=== PATIENT | female | born 2000 | race Hispanic/Latino ===

== ENCOUNTER 2022-07-10 17:44 | Emergency (ER) | payer OTHER ==
--- OUTSIDE RECORDS SUMMARY | 2022-07-10 17:49 | XMS REPORT | Continuity of Care Document ---
:2000 Author Organization [facility] t Address [address] Sellers [address] [place] [id number] Care Team Providers Name Role Phone Shona Bryant Primary Care Physician [phone] SHONA ARAUZ Attending Clinician Unavailable Margot Ramos CNM Attending Clinician MARGOT RAMOS Attending Clinician Unavailable Provider, TeresaRmchtj Temp Attending Clinician Unavailable Shona Bryant Attending Clinician [phone] Shazia Ellison PA-C Attending Clinician SHAZIA ELLISON Attending Clinician Unavailable Doctor Unassigned, Valera Attending Clinician Unavailable MELISSA POTTER Attending Clinician Unavailable Payers Payer Name Policy Type Policy Number Effective Date Expiration Date Dudley araya MD [employer] [id number] 2022 00:00:00 Problems Condition Condition Condition Status Onset Resolution Last Treating Co mments Source Name Details Category Date Date Treatment Clinician Date Encounter Encounter Disease Active 2021-08 Uni vers for for 08-23 ity of Depo-Prove Depo-Prove 00:00: [place] 00 Medical contracept contracept Br anch ion ion Overweight Overweight Disease Active 2021-08 U nivers (BMI (BMI 1-05 ity of 25.0-29.9) 25.0-29.9) 00:00: [place] [facility] History of History of Disease Active 2021-08 U paters chlamydia chlamydia 05 [place] Allergies, Adverse Reactions, Alerts Allergy Allergy Status Severity Reaction(s) Onset Inactive Treating Comm ents Source Name Type Date Date Clinician NO KNOWN Drug Active Univers ALLERGIE Class ity of S [facility] Social History Social Habit Start Date Stop Date Quantity Comments Source History SDOH University o f Alcohol Std [place] [facility] Drinks [facility] History SDOH University o f Alcohol Binge [place] [facility] Alcohol intake 2022-07-08 2022-07-08 Current drinker Unive rsity of 00:00:00 00:00:00 of alcohol [facility] (finding) Branch Exposure to 2022-06-24 2022-07-04 Not sure [facility]-CoV-2 00:00:00 13:05:00 [facility] (event) [place] Tobacco use and 2022-06-23 2022-06-23 Smokeless tobacco Un iversity of exposure 00:00:00 00:00:00 non-user [facility] Alcohol Comment 2022-06-23 2022-06-23 Socially Universit y of 00:00:00 00:00:00 [facility] History SDOH 2019-09-02 2019-09-02 1 University o f Alcohol Frequency 00:00:00 00:00:00 [facility] edical [place] Sex Assigned At 2000 2001 Universit y of 00:00:00 00:00:00 [facility] Smoking Status Start Date Stop Date Source Never smoked tobacco [facility] Medications Ordered Filled Start Stop Current Ordering Indication Dosage Frequency Signature Comments Components Source Medication Medication Date Date Medication? Clinician (SIG) Name Name metroNIDAZO 2021-08- Yes [id number] 500mg Take 1 Univers LE 500 mg 17 11-25 tablet by ity of tablet 00:00: 05:59 mouth in [place] 00 :00 the Medical morning Branch and 1 tablet in the evening. Do all this for 7 days. medroxyPROG 2021-08 Yes [id number] 150mg Univers ESTERone 1-05 ity of (DEPO-PROVE 14:45: [place] RA) syringe 00 Medical 150 mg Branch medroxyPROG 2021-08 Yes [id number] 150mg 150 mg, Univers ESTERone 1-05 Intramuscu ity o f (DEPO-PROVE 14:45: lar, [place] RA) syringe 00 [id number], Med ical 150 mg First dose Branch on 06/23/22 at 0945, Until Discontinu ed, Routine medroxyPROG 2021-08 Yes [id number] 150mg Univers ESTERone 1-05 ity of (DEPO-PROVE 14:45: [place] RA) syringe 00 Medical 150 mg Branch medroxyPROG 2021-08 Yes [id number] 150mg 150 mg, Univers ESTERone 1-05 Intramuscu ity o f (DEPO-PROVE 14:45: lar, [place] RA) syringe 00 [id number], Med ical 150 mg First dose Branch on 06/23/22 at 0945, Until Discontinu ed, Routine medroxyPROG 2021-08 Yes [id number] 150mg Univers ESTERone 1-05 ity of (DEPO-PROVE 14:45: [place] RA) syringe 00 Medical 150 mg Branch medroxyPROG 2021-08 Yes [id number] 150mg Univers ESTERone 1-05 ity of (DEPO-PROVE 14:45: [place] RA) syringe 00 Medical 150 mg Branch medroxyPROG 2021-08 Yes [id number] 150mg Univers ESTERone 1-05 ity of (DEPO-PROVE 14:45: [place] RA) syringe 00 Medical 150 mg Branch medroxyPROG 2021-08 Yes [id number] 150mg Univers ESTERone 1-05 ity of (DEPO-PROVE 14:45: [place] RA) syringe 00 Medical 150 mg Branch medroxyPROG 2021-08 Yes [id number] 150mg Univers ESTERone 1-05 ity of (DEPO-PROVE 14:45: [place] RA) syringe 00 Medical 150 mg Branch medroxyPROG 2021-08 Yes [id number] 150mg Univers ESTERone 1-05 ity of (DEPO-PROVE 14:45: [place] RA) syringe 00 Medical 150 mg Branch medroxyPROG 2021-08- No [id number] 150mg Univers ESTERone 1-05 11-05 ity of (DEPO-PROVE 14:30: 14:20 [place] RA) 00 :37 Medical injection Branch 150 mg medroxyPROG 2021-08- No [id number] 150mg Univers ESTERone 1-05 11-05 ity of (DEPO-PROVE 14:30: 14:20 [place] RA) 00 :37 Medical injection Branch 150 mg metroNIDAZO 2021- No [id number] 500mg Take 1 Univers LE 500 mg 09-04 tablet by ity of tablet 00:00: 00:00 mouth 2 [place] 00 :00 (two) Medical times [place] daily. metroNIDAZO 2021- No [id number] 500mg Take 1 Univers LE 500 mg 09-04 tablet by ity of tablet 00:00: 00:00 mouth 2 [place] 00 :00 (two) Medical times [place] daily. Immunizations Ordered Immunization Filled Immunization Date Status Commen ts Source Name Name Influenza Virus 2020-08-09 Completed Universit y of Vaccine [place] .5 mL 00:00:00 [place] [facility] IM 6+ MO Branch Influenza Virus 2020-08-09 Completed Universit y of Vaccine [place] .5 mL 00:00:00 [place] [facility] 6+ MO Branch Influenza Virus 2020-08-09 Completed Universit y of Vaccine [place] .5 mL 00:00:00 [place] [facility] 6+ MO Branch Influenza Virus 2020-08-09 Completed Universit y of Vaccine [place] .5 mL 00:00:00 [place] [facility] 6+ MO Branch Influenza Virus 2020-08-09 Completed Universit y of Vaccine [place] .5 mL 00:00:00 [place] [facility] IM 6+ MO Branch Influenza Virus 2020-08-09 Completed Universit y of Vaccine [place] .5 mL 00:00:00 [place] [facility] 6+ MO Branch Influenza Virus 2020-08-09 Completed Universit y of Vaccine [place] .5 mL 00:00:00 [place] [facility] 6+ MO Branch Influenza Virus 2020-08-09 Completed Universit y of Vaccine [place] .5 mL 00:00:00 [place] [facility] IM 6+ MO Branch Influenza Virus 2019-09-02 Completed Universit y of Vaccine [place] .5 mL 00:00:00 [place] [facility] IM 6+ MO Branch Influenza Virus 2019-09-02 Completed Universit y of Vaccine [place] .5 mL 00:00:00 [place] [facility] IM 6+ MO Branch Influenza Virus 2019-09-02 Completed Universit y of Vaccine [place] .5 mL 00:00:00 [place] [facility] IM 6+ MO Branch Influenza Virus 2019-09-02 Completed Universit y of Vaccine [place] .5 mL 00:00:00 [place] [facility] IM 6+ MO Branch Influenza Virus 2019-09-02 Completed Universit y of Vaccine [place] .5 mL 00:00:00 [place] [facility] IM 6+ MO Branch Influenza Virus 2019-09-02 Completed Universit y of Vaccine [place] .5 mL 00:00:00 [facility] IM 6+ MO Branch Influenza Virus 2019-09-02 Completed Universit y of Vaccine [place] .5 mL 00:00:00 [facility] IM 6+ MO Branch Influenza Virus 2019-09-02 Completed Universit y of Vaccine [place] .5 mL 00:00:00 [facility] 6+ MO Branch Meningococcal B, 2017-01-21 Completed Universi ty of Recombinant 00:00:00 [facility] Meningococcal B, 2017-01-21 Completed Universi ty of Recombinant 00:00:00 [facility] Meningococcal B, 2017-01-21 Completed Universi ty of Recombinant 00:00:00 [facility] Meningococcal B, 2017-01-21 Completed Universi ty of Recombinant 00:00:00 [facility] Meningococcal B, 2017-01-21 Completed Universi ty of Recombinant 00:00:00 [facility] Meningococcal B, 2017-01-21 Completed Universi ty of Recombinant 00:00:00 [facility] Meningococcal B, 2017-01-21 Completed Universi ty of Recombinant 00:00:00 [facility] Meningococcal B, 2017-01-21 Completed Universi ty of Recombinant 00:00:00 [facility] Influenza Virus 2014-07-27 Completed Universit y of Vaccine 00:00:00 [facility] Influenza Virus 2014-07-27 Completed Universit y of Vaccine 00:00:00 [facility] Influenza Virus 2014-07-27 Completed Universit y of Vaccine 00:00:00 [facility] Influenza Virus 2014-07-27 Completed Universit y of Vaccine 00:00:00 [facility] Influenza Virus 2014-07-27 Completed Universit y of Vaccine 00:00:00 [facility] Influenza Virus 2014-07-27 Completed Universit y of Vaccine 00:00:00 [facility] Influenza Virus 2014-07-27 Completed Universit y of Vaccine 00:00:00 [facility] Influenza Virus 2014-07-27 Completed Universit y of Vaccine 00:00:00 [facility] HPV 2013-07-13 Completed University of 00:00:00 [facility] Influenza Virus 2013-07-13 Completed Universit y of Vaccine 00:00:00 [facility] HPV 2013-07-13 Completed University of 00:00:00 [facility] Influenza Virus 2013-07-13 Completed Universit y of Vaccine 00:00:00 [facility] HPV 2013-07-13 Completed University of 00:00:00 [facility] Influenza Virus 2013-07-13 Completed Universit y of Vaccine 00:00:00 [facility] HPV 2013-07-13 Completed University of 00:00:00 [facility] Influenza Virus 2013-07-13 Completed Universit y of Vaccine 00:00:00 [facility] HPV 2013-07-13 Completed University of 00:00:00 [facility] Influenza Virus 2013-07-13 Completed Universit y of Vaccine 00:00:00 [facility] HPV 2013-07-13 Completed University of 00:00:00 [facility] Influenza Virus 2013-07-13 Completed Universit y of Vaccine 00:00:00 [facility] HPV 2013-07-13 Completed University of 00:00:00 [facility] Influenza Virus 2013-07-13 Completed Universit y of Vaccine 00:00:00 [facility] HPV 2013-07-13 Completed University of 00:00:00 [facility] Influenza Virus 2013-07-13 Completed Universit y of Vaccine 00:00:00 [facility] HPV 2013-03-16 Completed University of 00:00:00 [facility] HPV 2013-03-16 Completed University of 00:00:00 [facility] HPV 2013-03-16 Completed University of 00:00:00 [facility] HPV 2013-03-16 Completed University of 00:00:00 [facility] HPV 2013-03-16 Completed University of 00:00:00 [facility] HPV 2013-03-16 Completed University of 00:00:00 [facility] HPV 2013-03-16 Completed University of 00:00:00 [facility] HPV 2013-03-16 Completed University of 00:00:00 [facility] HPV 2013-01-13 Completed University of 00:00:00 [facility] TDAP 2013-01-13 Completed University of 00:00:00 [facility] Meningococcal B, 2013-01-13 Completed Universi ty of Recombinant 00:00:00 [facility] HPV 2013-01-13 Completed University of 00:00:00 [facility] TDAP 2013-01-13 Completed University of 00:00:00 [facility] Meningococcal B, 2013-01-13 Completed Universi ty of Recombinant 00:00:00 [facility] HPV 2013-01-13 Completed University of 00:00:00 [facility] TDAP 2013-01-13 Completed University of 00:00:00 [facility] Meningococcal B, 2013-01-13 Completed Universi ty of Recombinant 00:00:00 [facility] HPV 2013-01-13 Completed University of 00:00:00 [facility] TDAP 2013-01-13 Completed University of 00:00:00 [facility] Meningococcal B, 2013-01-13 Completed Universi ty of Recombinant 00:00:00 [facility] HPV 2013-01-13 Completed University of 00:00:00 [facility] TDAP 2013-01-13 Completed University of 00:00:00 [facility] Meningococcal B, 2013-01-13 Completed Universi ty of Recombinant 00:00:00 [facility] HPV 2013-01-13 Completed University of 00:00:00 [facility] TDAP 2013-01-13 Completed University of 00:00:00 [facility] Meningococcal B, 2013-01-13 Completed Universi ty of Recombinant 00:00:00 [facility] HPV 2013-01-13 Completed University of 00:00:00 [facility] TDAP 2013-01-13 Completed University of 00:00:00 [facility] Meningococcal B, 2013-01-13 Completed Universi ty of Recombinant 00:00:00 [facility] HPV 2013-01-13 Completed University of 00:00:00 [facility] TDAP 2013-01-13 Completed University of 00:00:00 [facility] Meningococcal B, 2013-01-13 Completed Universi ty of Recombinant 00:00:00 [facility] Varicella 2009-03-11 Completed University of (varivax)(chicken 00:00:00 [place] [facility] ed[facility] pox) Branch Varicella 2009-03-11 Completed University of (varivax)(chicken 00:00:00 [place] [facility] pox) Branch Varicella 2009-03-11 Completed University of (varivax)(chicken 00:00:00 [place] [facility] pox) Branch Varicella 2009-03-11 Completed University of (varivax)(chicken 00:00:00 [place] [facility] pox) Branch Varicella 2009-03-11 Completed University of (varivax)(chicken 00:00:00 [place] [facility] pox) Branch Varicella 2009-03-11 Completed University of (varivax)(chicken 00:00:00 [place] [facility] pox) Branch Varicella 2009-03-11 Completed University of (varivax)(chicken 00:00:00 [facility] edical pox) Branch Varicella 2009-03-11 Completed University of (varivax)(chicken 00:00:00 [facility] edical pox) Branch DTAP 2005-09-17 Completed University of 00:00:00 [facility] Hepatitis A Adult 2005-09-17 Completed Univers ity of 00:00:00 [facility] 2005-09-17 Completed University of 00:00:00 [facility] DTAP 2005-09-17 Completed University of 00:00:00 [facility] Hepatitis A Adult 2005-09-17 Completed Univers ity of 00:00:00 [facility] 2005-09-17 Completed [facility] [facility] University of 00:00:00 [facility] Hepatitis A Adult 2005-09-17 Completed Univers ity of 00:00:00 [facility] 2005-09-17 Completed University [facility] 00:00[facility] [facility] 2005-09-17 Completed University of 00:00:00 [facility] Hepatitis A Adult 2005-09-17 Completed Univers ity of 00:00:00 [facility] 2005-09-17 Completed University [facility] 00:00[facility] [facility] 2005-[facility]-17 Completed University of 00:00:00 [facility] Hepatitis A Adult 2005-09-17 Completed Univers ity of 00:00:00 [facility] 2005-09-17 Completed University [facility] 00:00[facility] [facility] 2005-09-17 Completed University of 00:00:00 [facility] Hepatitis A Adult 2005-09-17 Completed Univers ity of 00:00:00 [facility] 2005-09-17 Completed University of 00:00:00 [facility] DTAP 2005-09-17 Completed University of 00:00:00 [facility] Hepatitis A Adult 2005-09-17 Completed Univers ity of 00:00:00 [facility] 2005-09-17 Completed University [facility] 00:00[facility] [facility] 2005-[facility] Completed University of 00:00:00 [facility] Hepatitis A Adult 2005-09-17 Completed Univers ity of 00:00:00 [facility] 2005-09-17 Completed University of 00:00:00 [facility] Hepatitis A Adult 2005-03-16 Completed Univers ity of 00:00:00 [facility] Hepatitis A Adult 2005-03-16 Completed Univers ity of 00:00:00 [facility] Hepatitis A Adult 2005-03-16 Completed Univers ity of 00:00:00 [facility] Hepatitis A Adult 2005-03-16 Completed Univers ity of 00:00:00 [facility] Hepatitis A Adult 2005-03-16 Completed Univers ity of 00:00:00 [facility] Hepatitis A Adult 2005-03-16 Completed Univers ity of 00:00:00 [facility] Hepatitis A Adult 2005-03-16 Completed Univers ity of 00:00:00 [facility] Hepatitis A Adult 2005-03-16 Completed Univers ity of 00:00:00 [facility] DTAP 2005-03-07 Completed University of 00:00:00 [facility] Hep B, Adol or Pedi 2005-03-07 Completed Unive rsity of Dosage 00:00:00 [facility] MMR 2005-03-07 Completed University of 00:00:00 [facility] Varicella 2005-03-07 Completed University of (varivax)(chicken 00:00:00 [place] [facility] pox) Branch DTAP 2005-03-07 Completed University of 00:00:00 [facility] Hep B, Adol or Pedi 2005-03-07 Completed Unive rsity of Dosage 00:00:00 [facility] MMR 2005-03-07 Completed University of 00:00:00 [facility] Varicella 2005-03-07 Completed University of (varivax)(chicken 00:00:00 [place] [facility] pox) Branch DTAP 2005-03-07 Completed University of 00:00:00 [facility] Hep B, Adol or Pedi 2005-03-07 Completed Unive rsity of Dosage 00:00:00 [facility] MMR 2005-03-07 Completed University of 00:00:00 [facility] Varicella 2005-03-07 Completed University of (varivax)(chicken 00:00:00 [place] [facility] pox) Branch DTAP 2005-03-07 Completed University of 00:00:00 [facility] Hep B, Adol or Pedi 2005-03-07 Completed Unive rsity of Dosage 00:00:00 [facility] MMR 2005-03-07 Completed University of 00:00:00 [facility] Branch Varicella 2005-03-07 Completed University of (varivax)(chicken 00:00:00 [place] [facility] pox) Branch DTAP 2005-03-07 Completed University of 00:00:00 [facility] Branch Hep B, Adol or Pedi 2005-03-07 Completed Unive rsity of Dosage 00:00:00 [facility] MMR 2005-03-07 Completed University of 00:00:00 [facility] Varicella 2005-03-07 Completed University of (varivax)(chicken 00:00:00 [place] [facility] pox) Branch DTAP 2005-03-07 Completed University of 00:00:00 [facility] Hep B, Adol or Pedi 2005-03-07 Completed Unive rsity of Dosage 00:00:00 [facility] MMR 2005-03-07 Completed University of 00:00:00 [facility] Varicella 2005-03-07 Completed University of (varivax)(chicken 00:00:00 [place] [facility] pox) Branch DTAP 2005-03-07 Completed University of 00:00:00 [facility] Hep B, Adol or Pedi 2005-03-07 Completed Unive rsity of Dosage 00:00:00 [facility] MMR 2005-03-07 Completed University of 00:00:00 [facility] Varicella 2005-03-07 Completed University of (varivax)(chicken 00:00:00 [place] [facility] pox) Branch DTAP 2005-03-07 Completed University of 00:00:00 [facility] Hep B, Adol or Pedi 2005-03-07 Completed Unive rsity of Dosage 00:00:00 [facility] MMR 2005-03-07 Completed University of 00:00:00 [facility] Varicella 2005-03-07 Completed University of (varivax)(chicken 00:00:00 [place] [facility] pox) Branch DTAP 2001 Completed University of 00:00:00 [facility] Hep B, Adol or Pedi 2001 Completed Unive rsity of Dosage 00:00:00 [facility] DTAP 2001 Completed University of 00:00:00 [facility] Hep B, Adol or Pedi 2001 Completed Unive rsity of Dosage 00:00:00 [facility] DTAP 2001 Completed University of 00:00:00 [place] [facility] Hep B, Adol or Pedi 2001 Completed Unive rsity of Dosage 00:00:00 [place] [facility] DTAP 2001 Completed University of 00:00:00 [place] [facility] Hep B, Adol or Pedi 2001 Completed Unive rsity of Dosage 00:00:00 [place] [facility] DTAP 2001 Completed University of 00:00:00 [place] [facility] Hep B, Adol or Pedi 2001 Completed Unive rsity of Dosage 00:00:00 [place] [facility] DTAP 2001 Completed University of 00:00:00 [place] [facility] Hep B, Adol or Pedi 2001 Completed Unive rsity of Dosage 00:00:00 [place] [facility] DTAP 2001 Completed University of 00:00:00 [place] [facility] Hep B, Adol or Pedi 2001 Completed Unive rsity of Dosage 00:00:00 [place] [facility] DTAP 2001 Completed University of 00:00:00 [place] [facility] Hep B, Adol or Pedi 2001 Completed Unive rsity of Dosage 00:00:00 [place] [facility] DTAP 2001 Completed University of 00:00:00 [place] [facility] Hep B, Adol or Pedi 2001 Completed Unive rsity of Dosage 00:00:00 [place] [facility] DTAP 2001 Completed University of 00:00:00 [place] [facility] Hep B, Adol or Pedi 2001 Completed Unive rsity of Dosage 00:00:00 [place] [facility] DTAP 2001 Completed University of 00:00:00 [place] [facility] Hep B, Adol or Pedi 2001 Completed Unive rsity of Dosage 00:00:00 [place] [facility] DTAP 2001 Completed University of 00:00:00 [place] [facility] Hep B, Adol or Pedi 2001 Completed Unive rsity of Dosage 00:00:00 [place] [facility] DTAP 2001 Completed University of 00:00:00 [place] [facility] Hep B, Adol or Pedi 2001 Completed Unive rsity of Dosage 00:00:00 [place] [facility] DTAP 2001 Completed University of 00:00:00 [place] [facility] Hep B, Adol or Pedi 2001 Completed Unive rsity of Dosage 00:00:00 [place] [facility] DTAP 2001 Completed University of 00:00:00 [place] [facility] Hep B, Adol or Pedi 2001 Completed Unive rsity of Dosage 00:00:00 [place] [facility] DTAP 2001 Completed University of 00:00:00 [place] [facility] Hep B, Adol or Pedi 2001 Completed Unive rsity of Dosage 00:00:00 [facility] Vital Signs Vital Name Observation Time Observation Value Comments Source Systolic blood 2022-07-04 19:05:00 110 mm[Hg] Univer sity of pressure [facility] Diastolic blood 2022-07-04 19:05:00 49 mm[Hg] Unive rsity of pressure [facility] Heart rate 2022-07-04 19:05:00 73 /min Universi ty [facility] Body temperature 2022-07-04 19:05:00 36.78 [place] Univ ersity of [facility] Respiratory rate 2022-07-04 19:05:00 18 /min Univ ersity of [facility] Body height 2022-07-04 19:05:00 165.1 cm Universi ty [facility] Body weight 2022-07-04 19:05:[facility] BMI 2022-07-04 19:05:00 24.55 kg/m2 Universi ty [facility] Systolic blood 2022-06-23 13:59:00 127 mm[Hg] Univer sity of pressure [facility] Branch Diastolic blood 2022-06-23 13:59:00 72 mm[Hg] Unive rsity of pressure [facility] Branch Heart rate 2022-06-23 13:59:00 65 /min Universi ty [facility] Body temperature 2022-06-23 13:59:00 36.83 [place] Univ ersity of [facility] Respiratory rate 2022-06-23 13:59:00 16 /min Univ ersity of [facility] Branch Body height 2022-06-23 13:59:00 152.4 cm Universi ty [facility] Body weight 2022-06-23 13:59:00 65.998 kg [facility] BMI 2022-06-23 13:59:00 28.42 kg/m2 [facility] Procedures Procedure Date / Time Performed Performing Clinician Sourc e GALV ONLY - VAGINAL 2022-07-04 19:54:00 Margot Ramos [facility] BY [facility]LE[facility] [employer] ACID TESTING ASSIGNMENT OF BENEFITS 2022-06-23 14:44:56 Doctor Unassigned, No [facility] POCT TEST 2022-06-23 00:00:00 Shazia Ellison [facility] Encounters Start End Encounter Admission Attending Care Care Encounter Source Date/Time Date/Time Type Type Clinicians Facility Department ID 2022-09-17 2022-09-17 Outpatient R [facility] [id number] Univers 09:30:00 09:30:00 ity [facility] 2022-07-05 2022-07-05 [facility] [id number] Univers 00:00:00 00:00:00 Management Margot Mathis DIRECTOR INVESTMENT BANKING [id number] ity of [facility] [id number] Berto as MATERNAL [phone] Med ical & CHILD [address] [place] [address] 2022-07-04 2022-07-04 [facility] [id number] Univers 12:45:00 13:27:43 [facility]-07-04 2022-07-04 Office Provider, Mannie-Rmchp [facility] 1 .[id number] Univers 12:45:00 13:27:43 Visit Margot Ramos DIRECTOR INVESTMENT BANKING [id number] ity of [facility] [id number] Berto as MATERNAL [phone] [facility] & CHILD [address] [place] [address] 2022-06-27 2022-06-27 [facility] [id number] Univers 00:00:00 00:00:00 Shona Enrique DIRECTOR INVESTMENT BANKING [id number] ity [facility] [id number] Berto as MATERNAL [phone] [facility] ical & CHILD [address] [place] [address] 2022-06-23 2022-06-23 Office [facility] .[id number] Univers 09:00:00 09:43:07 Visit Shazia Ellison DIRECTOR INVESTMENT BANKING [id number] ity [facility] [id number] Berto as MATERNAL [phone] Med ical & CHILD [address] [place] [address] 2022-06-23 2022-06-23 Outpatient R SCOT [facility] [id number] Univers 09:00:00 09:43:07 SHAZIA ity [facility] 2022-06-23 2022-06-23 Orders Doctor LALY [id number] Univers 00:00:00 00:00:00 Only Unassigned, YOSSI [id number] ity [place] [id number] Berto as [phone] [address] 2021-09-07 2021-09-07 Outpatient R AKINSIPE, [facility] [id number] Univers 09:45:00 09:45:00 SHONA cay o [facility] 2020-12-06 2020-12-06 Outpatient R AKINSIPE, [facility] [id number] Univers 13:30:00 13:30:00 SHONA yashiray o f [facility] 2020-11-11 2020-11-11 Outpatient R AKINSIPE, [facility] [id number] Univers 13:00:00 13:00:00 SHONA yashiray o [facility] 2020-11-01 2020-11-01 Outpatient R [facility] [id number] Univers 10:30:00 10:30:00 ity of [facility] 2020-09-07 2020-09-07 Outpatient R AKINSIPE, [facility] [id number] Univers 09:30:00 09:30:00 SHONA yashiray o [facility] 2020-08-29 2020-08-29 Outpatient R AKINSIPE, [facility] [id number] Univers 09:15:00 09:15:00 SHONA ity o f [facility] 2020-08-09 2020-08-09 Outpatient R [facility] [id number] Univers 09:00:00 09:00:00 [facility] 2020-05-17 2020-05-17 Outpatient R [facility] [id number] Univers 09:00:00 09:00:00 [facility] 2020-04-27 2020-04-27 Outpatient R AKINSIPE, [facility] [id number] Univers 08:00:00 08:00:00 SHONA ity o f [facility] 2020-02-23 2020-02-23 Outpatient R AKINSIPE, [facility] [id number] Univers 09:00:00 09:00:00 SHONA ity o f [facility] 2020-02-17 2020-02-17 Outpatient R [facility] [id number] Univers 10:00:00 10:00:00 [facility] 2019-11-25 2019-11-25 Outpatient R [facility] [id number] Univers 16:00:00 16:00:00 [facility] Results Test Description Test Time Test Comments Results Result Comments Source POCT TEST 2022-06-23 14:04:00 Test Item Value Reference Range Interpretation Comme nts POCT PREG (test code = 1605) Negative On board controls acceptable with C Line (test code = 3574) Yes POCT PREG LOT # (test code = 3575) POCT PREG TEST DATE (test code = 3576) [id number] 14:04:00 Test Item Value Reference Range Interpretation Comments POCT PREG (test code = 1605) Negative On board controls acceptable with C Yes Line (test code = 3574) POCT PREG LOT # (test code = 3575) POCT PREG TEST DATE (test code = 3576) [facility]
--- NOTE | 2022-07-10 18:52 | EDPHYS ---
Physician Documentation [facility] Name: Judith Baker Age: 22 yrs Sex: Female : 2000 Arrival Date: 07/10/2022 Time: 17:47 Bed IW1 Private MD: ED Physician Cortez Balderrama HPI: 07/10 18:52 This 22 yrs old Female presents to ER via Ambulatory with complaints of Sore kb Throat. 18:52 The patient presents with sore throat. The patient describes throat pain as constant. kb Onset: The symptoms/episode began/occurred 2 day(s) ago. Severity of symptoms: At their worst the symptoms were mild, moderate, in the emergency department the symptoms are unchanged. Modifying factors: The symptoms are alleviated by nothing, the symptoms are aggravated by swallowing, Patient's oral intake status: good. Associated signs and symptoms: Pertinent positives: Sore throat. The patient has not experienced similar symptoms in the past. The patient has not recently seen a physician. Pt reports sore throat for 2 days. Denies any other symptoms. 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 - Social history:: Smoking status: Patient denies any tobacco usage or history of. Patient uses alcohol, occasionally. ROS: 18:29 Constitutional: Negative for fever, chills, and weight loss. kb 18:29 ENT: Positive for sore throat. 18:29 All other systems are negative. Exam: 18:30 Constitutional: This is a well developed, well nourished patient who is awake, alert, kb and in no acute distress. Head/Face: Normocephalic, atraumatic. ENT: Moist Mucous membranes Cardiovascular: Regular rate and rhythm with a normal S1 and S2. No gallops, murmurs, or rubs. No pulse deficits. Respiratory: Respirations even and unlabored. No increased work of breathing. Talking in full sentences Abdomen/GI: Soft, non-tender. No distention Skin: Warm, dry with normal turgor. Normal color. MS/ Extremity: Pulses equal, no cyanosis. Neurovascular intact. Full, normal range of motion. Neuro: Awake and alert, GCS 15, oriented to person, place, time, and situation. Moves all extremities. Normal gait. Psych: Awake, alert, with orientation to person, place and time. Behavior, mood, and affect are within normal limits. 18:30 ENT: Posterior pharynx: Airway: normal, no evidence of obstruction, Tonsils: are normal in appearance, Uvula: normal, midline, swelling, is not appreciated, erythema, that is mild, exudate, is not appreciated. Vital Signs: 17:51 BP 139 / 83; Pulse 73; Resp 18; Temp 98.3(TE); Pulse Ox 99% on R/A; Weight 67.13 kg; ld1 Height 5 ft. 0 in. (152.40 cm); Pain 0/10; 17:51 Body Mass Index 28.90 (67.13 kg, 152.40 cm) ld1 MDM: 17:48 Patient medically screened. kb 18:29 Data reviewed: vital signs, nurses notes. Data interpreted: Pulse oximetry: on room air kb is 99 %. Interpretation: normal. Counseling: I had a detailed discussion with the patient and/or guardian regarding: the historical points, exam findings, and any diagnostic results supporting the discharge/admit diagnosis, lab results, the need for outpatient follow up, a family practitioner, to return to the emergency department if symptoms worsen or persist or if there are any questions or concerns that arise at home. 07/10 17:52 Order name: Strep; Complete Time: 18:29 kb 07/10 18:14 Order name: Throat Culture EDMS Administered Medications: No medications were administered Disposition: 07/11 11:07 Co-signature as Attending Physician, Cortez Balderrama MD I agree with the assessment and rt plan of care. Disposition Summary: 07/10/22 18:51 Discharge Ordered Location: Home kb Condition: Stable kb Diagnosis - Acute pharyngitis, unspecified kb Followup: kb - With: Emergency Department - When: As needed - Reason: Worsening of condition Followup: kb - With: Private Physician - When: 2 - 3 days - Reason: Recheck today's complaints, Continuance of care, Re-evaluation by your physician Discharge Instructions: - Discharge Summary Sheet kb - Pharyngitis, Osky-[id number] kb Forms: - Medication Reconciliation Form kb - Thank You Letter kb - Antibiotic Education kb - Prescription Opioid Use kb - Work release form dt4 Signatures: Dispatcher [employer] Alicia Carcamo FNP-C FNP-Ckb Dibbern, Lauren, RN RN ld1 Cortez Balderrama MD MD rt
--- NOTE | 2022-07-10 18:52 | ER ---
Nurse's Notes [facility] Name: Judith Baker Age: 22 yrs Sex: Female : 2000 Arrival Date: 07/10/2022 Time: 17:47 Bed IW1 Private MD: Diagnosis: Acute pharyngitis, unspecified Presentation: 07/10 17:51 Chief complaint: Patient states: Sore throat X 3-4 days ago. Coronavirus screen: At ld1 this time, the client does not indicate any symptoms associated with coronavirus-19. Ebola Screen: No symptoms or risks identified at this time. Initial Sepsis Screen: Does the patient meet any 2 criteria? No. Patient's initial sepsis screen is negative. Does the patient have a suspected source of infection? No. Patient's initial sepsis screen is negative. Risk Assessment: Do you want to hurt yourself or someone else? Patient reports no desire to harm self or others. Onset of symptoms was July 10, 2022. 17:51 Method Of Arrival: Ambulatory ld1 17:51 Acuity: KATEY 4 ld1 Triage Assessment: 17:52 General: Appears in no apparent distress. comfortable, Behavior is calm, cooperative, ld1 appropriate for age. Pain: Denies pain. EENT: Reports pain in uvula. Neuro: Level of Consciousness is awake, alert, obeys commands, Oriented to person, place, time, situation. Cardiovascular: Capillary refill < 3 seconds Patient's skin is warm and dry. Respiratory: Airway is patent Respiratory effort is even, unlabored. GI: Abdomen is flat, non-distended. : No signs and/or symptoms were reported regarding the genitourinary system. Derm: No signs and/or symptoms reported regarding the dermatologic system. 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 - Social history:: Smoking status: Patient denies any tobacco usage or history of. Patient uses alcohol, occasionally. Screenin:55 Abuse screen: Denies threats or abuse. Denies injuries from another. Nutritional ld1 screening: No deficits noted. Tuberculosis screening: No symptoms or risk factors identified. Fall Risk None identified. Vital Signs: 17:51 BP 139 / 83; Pulse 73; Resp 18; Temp 98.3(TE); Pulse Ox 99% on R/A; Weight 67.13 kg; ld1 Height 5 ft. 0 in. (152.40 cm); Pain 0/10; 17:51 Body Mass Index 28.90 (67.13 kg, 152.40 cm) ld1 ED Course: 17:47 Patient arrived in ED. mr 17:48 Alicia Salinas FNP-C is [facility]. kb 17:48 Cortez Balderrama MD is Attending Physician. kb 17:52 Triage completed. ld1 17:52 Arm band placed on right wrist. ld1 17:54 Strep Sent. ld1 18:55 Patient has correct armband on for positive identification. Adult w/ patient. Pulse ox ld1 on. NIBP on. Door closed. Noise minimized. 18:55 No provider procedures requiring assistance completed. Patient did not have IV access ld1 during this emergency room visit. Administered Medications: No medications were administered Medication: 18:56 VIS not applicable for this client. ld1 Outcome: 18:51 Discharge ordered by . kb 18:55 Discharged to home ambulatory. ld1 18:55 Condition: stable 18:55 Discharge instructions given to patient, Instructed on discharge instructions, follow up and referral plans. Demonstrated understanding of instructions, follow-up care. 18:56 Patient left the ED. ld1 Signatures: Alicia Salinas FNP-C FNP-Ckb Rivera, Mary Yenny Reddy, RN RN ld1
[2022-07-10 19:13] VITALS: BP 139/83; TEMP 98.3; O2SAT 99
== END 2022-07-10 18:56 | disposition home or self-care (01) ==
LOC: ER 17:44
DX: J02.9 Acute pharyngitis, unspecified (principal)
CPT/HCPCS: 87070; 87081; 99283

== ENCOUNTER 2022-08-15 14:21 | Emergency (ER) | payer OTHER ==
--- OUTSIDE RECORDS SUMMARY | 2022-08-15 14:27 | XMS REPORT | Continuity of Care Document ---
:2000 Author Organization [facility] t Address [address] [place] [address] Care Team Providers Name Role Phone Shona Bryant Primary Care Physician [phone] SHONA ARAUZ Attending Clinician Unavailable Shona Bryant Attending Clinician [phone] Margot Ramos CNM Attending Clinician MARGOT RAMOS Attending Clinician Unavailable Provider, Ang-Rmchp Temp Attending Clinician Unavailable Shazia Ellison PA-C Attending Clinician SHAZIA ELLISON Attending Clinician Unavailable Doctor Unassigned, Hospers Attending Clinician Unavailable MELISSA POTTER Attending Clinician Unavailable Payers Payer Name Policy Type Policy Number Effective Date Expiration Date S m[place] [employer] [id number] 2022 00:00:00 Problems Condition Condition Condition Status Onset Resolution Last Treating Co mments Source Name Details Category Date Date Treatment Clinician Date 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 rs squamous squamous 1-30 ity of cells of cells of 00:00: [place] undetermin undetermin 00 Me dical ed ed Branch significan significan ce (ASCUS) ce (ASCUS) on on Papanicola Papanicola ou smear ou smear of cervix of cervix Encounter Encounter Disease Active 2021-08 Uni vers for for 105 ity of Depo-Prove [place] contracept contracept Br anch ion ion Overweight Overweight Disease Active 2021-08 U nivers (BMI (BMI 1-05 ity of 25.0-29.9) 25.0-29.9[place] [facility] [place] History of History of Disease Active 2021-08 U nivers chlamydia chlamydia - [place] [address] [place] [address] Allergies, Adverse Reactions, Alerts Allergy Allergy Status Severity Reaction(s) Onset Inactive Treating Comm ents Source Name Type Date Date Clinician NO KNOWN Drug Active Univers ALLERGIE Class ity of S [facility] Social History Social Habit Start Date Stop Date Quantity Comments Source History [facility] University o f Alcohol Std [place] [facility] Drinks [facility] History [facility] University o f Alcohol Binge [place] [facility] al [place] Alcohol intake 2022-07-18 2022-07-18 Current drinker Unive rsity of 00:00:00 00:00:00 of alcohol [facility] (finding) Branch Exposure to 2022-06-24 2022-07-04 Not sure [facility] SARS-CoV-2 00:00:00 13:05:00 [facility] (event) Branch Tobacco use and 2022-06-23 2022-06-23 Smokeless tobacco Un iversity of exposure 00:00:00 00:00:00 non-user [facility] Alcohol Comment 2022-06-23 2022-06-23 Socially Universit y of 00:00:00 00:00:00 [facility] History SDOH 2019-09-02 2019-09-02 1 University o f Alcohol Frequency 00:00:00 00:00:00 [facility] Sex Assigned At 2000 2001 Universit y of 00:00:00 00:00:00 [facility] Smoking Status Start Date Stop Date Source Never smoked tobacco [facility] Medications Ordered Filled Start Stop Current Ordering Indication Dosage Frequency Signature Comments Components Source Medication Medication Date Date Medication? Clinician (SIG) Name Name metroNIDAZO 2021-08- Yes [id number] 500mg Take 1 Univers LE 500 mg 09-20 12-10 tablet by ity of tablet 00:00: 05:59 mouth in [place] 00 :00 the Medical morning Branch and 1 tablet in the evening. Do all this for 7 days. metroNIDAZO 2021-08- Yes [id number] 500mg Take 1 Univers LE 500 mg 1-17 11-25 tablet by ity of tablet 00:00: 05:59 mouth in [place] 00 :00 the Medical morning Branch and 1 tablet in the evening. Do all this for 7 days. medroxyPROG 2021-08 Yes [id number] 150mg Univers ESTERone 1-05 ity of (DEPO-PROVE 14:45: [place] RA) syringe 00 Medical 150 mg Branch medroxyPROG 2021-08 Yes [id number] 150mg 150 mg, Univers ESTERone 1-05 Intramuscu ity o f (DEPO-PROVE 14:45: lar, [place] RA) syringe 00 [id number], Med ical 150 mg First dose Branch on 06/23/22 at 0945, Until Discontinu ed, Routine medroxyPROG 2021-08 Yes [id number] 150mg Univers ESTERone 1-05 ity of (DEPO-PROVE 14:45: [place] RA) syringe 00 Medical 150 mg Branch medroxyPROG 2021-08 Yes [id number] 150mg 150 mg, Univers ESTERone 1-05 Intramuscu ity o f (DEPO-PROVE 14:45: lar, [place] RA) syringe 00 [id number], Med ical 150 mg First dose Branch on 06/23/22 at 0945, Until Discontinu ed, Routine medroxyPROG 2021-08 Yes [id number] 150mg Univers ESTERone 1-05 ity of (DEPO-PROVE 14:45: [place] RA) syringe 00 Medical 150 mg Branch medroxyPROG 2021-08 Yes [id number] 150mg Univers ESTERone 1-05 ity of (DEPO-PROVE 14:45: [place] RA) syringe 00 Medical 150 mg Branch medroxyPROG 2021-08 Yes [id number] 150mg Univers ESTERone 1-05 ity of (DEPO-PROVE 14:45: [place] RA) syringe 00 Medical 150 mg Branch medroxyPROG 2021-08 Yes [id number] 150mg Univers ESTERone 1-05 ity of (DEPO-PROVE 14:45: [place] RA) syringe 00 Medical 150 mg Branch medroxyPROG 2021-08 Yes [id number] 150mg Univers ESTERone 1-05 ity of (DEPO-PROVE 14:45: [place] RA) syringe 00 Medical 150 mg Branch medroxyPROG 2021-08 Yes [id number] 150mg Univers ESTERone 1-05 ity of (DEPO-PROVE 14:45: [place] RA) syringe 00 Medical 150 mg Branch medroxyPROG 2021-08 Yes [id number] 150mg Univers ESTERone 1-05 ity of (DEPO-PROVE 14:45: [place] RA) syringe 00 Medical 150 mg Branch medroxyPROG 2021-08- No [id number] 150mg Univers ESTERone 1-05 11-05 ity of (DEPO-PROVE 14:30: 14:20 [place] RA) 00 :37 Medical injection Branch 150 mg medroxyPROG 2021-08- No [id number] 150mg Univers ESTERone -05 11-05 ity of (DEPO-PROVE 14:30: 14:20 [place] RA) 00 :37 Medical injection Branch 150 mg metroNIDAZO 2019-2021- No [id number] 500mg Take 1 Univers LE 500 mg 09-04 tablet by ity of tablet 00:00: 00:00 mouth 2 [place] 00 :00 (two) Medical times Branch daily. metroNIDAZO 2019-2021- No [id number] 500mg Take 1 Univers LE 500 mg 09-04 tablet by ity of tablet 00:00: 00:00 mouth 2 [place] 00 :00 (two) Medical times Branch daily. Immunizations Ordered Immunization Filled Immunization Date Status Commen ts Source Name Name Influenza Virus 2020-08-09 Completed Universit y of Vaccine Quad .5 mL 00:00:00 [place] [facility] IM 6+ MO Branch Influenza Virus 2020-08-09 Completed Universit y of Vaccine Quad .5 mL 00:00:00 [place] [facility] IM 6+ MO Branch Influenza Virus 2020-08-09 Completed Universit y of Vaccine Quad .5 mL 00:00:00 [place] [facility] IM 6+ MO Branch Influenza Virus 2020-08-09 Completed Universit y of Vaccine Quad .5 mL 00:00:00 [place] [facility] IM 6+ MO Branch Influenza Virus 2020-08-09 Completed Universit y of Vaccine Quad .5 mL 00:00:00 [place] [facility] IM 6+ MO Branch Influenza Virus 2020-08-09 Completed Universit y of Vaccine Quad .5 mL 00:00:00 [place] [facility] IM 6+ MO Branch Influenza Virus 2020-08-09 Completed Universit y of Vaccine Quad .5 mL 00:00:00 [place] [facility] IM 6+ MO Branch Influenza Virus 2020-08-09 Completed Universit y of Vaccine Quad .5 mL 00:00:00 [facility] 6+ MO [place] Influenza Virus 2020-08-09 Completed Universit y of Vaccine Quad .5 mL 00:00:00 [facility] 6+ MO Branch Influenza Virus 2019-09-02 Completed Universit y of Vaccine Quad .5 mL 00:00:00 [facility] 6+ [place] Influenza Virus 2019-09-02 Completed Universit y of Vaccine Quad .5 mL 00:00:00 [facility] 6+ [place] Influenza Virus 2019-09-02 Completed Universit y of Vaccine Quad .5 mL 00:00:00 [facility] 6+ [place] Influenza Virus 2019-09-02 Completed Universit y of Vaccine Quad .5 mL 00:00:00 [place] [address]+ [place] Influenza Virus 2019-09-02 Completed Universit y of Vaccine Quad .5 mL 00:00:[address] [place] Influenza Virus 2019-09-02 Completed Universit y of Vaccine Quad .5 mL 00:00:[address] [place] Influenza Virus 2019-09-02 Completed Universit y of Vaccine [place] .5 mL 00:00:[address] [place] Influenza Virus 2019-09-02 Completed Universit y of Vaccine Quad .5 mL 00:00:[address] Influenza Virus 2019-09-02 Completed Universit y of Vaccine Quad .5 mL 00:00:[address] Meningococcal B, 2017-01-21 Completed Universi ty of Recombinant 00:00:00 [facility] Meningococcal B, 2017-01-21 Completed Universi ty of Recombinant 00:00:00 [facility] Meningococcal B, 2017-01-21 Completed Universi ty of Recombinant 00:00:00 [facility] Meningococcal B, 2017-01-21 Completed Universi ty of Recombinant 00:00:00 [facility] Meningococcal B, 2017-01-21 Completed Universi ty of Recombinant 00:00:00 [facility] Meningococcal B, 2017-01-21 Completed Universi ty of Recombinant 00:00:00 [facility] Meningococcal B, 2017-01-21 Completed Universi ty of Recombinant 00:00:00 [facility] Meningococcal B, 2017-01-21 Completed Universi ty of Recombinant 00:00:00 [facility] Meningococcal B, 2017-01-21 Completed Universi ty of Recombinant 00:00:00 [facility] Influenza Virus 2014-07-27 Completed Universit y of Vaccine 00:00:00 [facility] Influenza Virus 2014-07-27 Completed Universit y of Vaccine 00:00:00 [facility] Influenza Virus 2014-07-27 Completed Universit y of Vaccine 00:00:00 [facility] Influenza Virus 2014-07-27 Completed Universit y of Vaccine 00:00:00 [facility] Influenza Virus 2014-07-27 Completed Universit y of Vaccine 00:00:00 [facility] Influenza Virus 2014-07-27 Completed Universit y of Vaccine 00:00:00 [facility] Influenza Virus 2014-07-27 Completed Universit y of Vaccine 00:00:00 [facility] Influenza Virus 2014-07-27 Completed Universit y of Vaccine 00:00:00 [facility] Influenza Virus 2014-07-27 Completed Universit y of Vaccine 00:00:00 [facility] HPV 2013-07-13 Completed University of 00:00:00 [facility] Influenza Virus 2013-07-13 Completed Universit y of Vaccine 00:00:00 [facility] HPV 2013-07-13 Completed University of 00:00:00 [facility] Influenza Virus 2013-07-13 Completed Universit y of Vaccine 00:00:00 [facility] HPV 2013-07-13 Completed University of 00:00:00 [facility] Influenza Virus 2013-07-13 Completed Universit y of Vaccine 00:00:00 [facility] HPV 2013-07-13 Completed University of 00:00:00 [facility] Influenza Virus 2013-07-13 Completed Universit y of Vaccine 00:00:00 [facility] HPV 2013-07-13 Completed University of 00:00:00 [facility] Influenza Virus 2013-07-13 Completed Universit y of Vaccine 00:00:00 [facility] HPV 2013-07-13 Completed University of 00:00:00 [facility] Influenza Virus 2013-07-13 Completed Universit y of Vaccine 00:00:00 [facility] HPV 2013-07-13 Completed University of 00:00:00 [facility] Influenza Virus 2013-07-13 Completed Universit y of Vaccine 00:00:00 [facility] HPV 2013-07-13 Completed University of 00:00:00 [facility] Influenza Virus 2013-07-13 Completed Universit y of Vaccine 00:00:00 [facility] HPV 2013-07-13 Completed University of 00:00:00 [facility] Influenza Virus 2013-07-13 Completed Universit y of Vaccine 00:00:00 [facility] Branch HPV 2013-03-16 Completed University of 00:00:00 [facility] Branch HPV 2013-03-16 Completed University of 00:00:00 [facility] Branch HPV 2013-03-16 Completed University of 00:00:00 [facility] Branch HPV 2013-03-16 Completed University of 00:00:00 [facility] Branch HPV 2013-03-16 Completed University of 00:00:00 [facility] Branch HPV 2013-03-16 Completed University of 00:00:00 [facility] Branch HPV 2013-03-16 Completed University of 00:00:00 [facility] HPV 2013-03-16 Completed University of 00:00:00 [facility] HPV 2013-03-16 Completed University of 00:00:00 [facility] HPV 2013-01-13 Completed University of 00:00:00 [facility] TDAP 2013-01-13 Completed University of 00:00:00 [facility] Meningococcal B, 2013-01-13 Completed Universi ty of Recombinant 00:00:00 [facility] HPV 2013-01-13 Completed University of 00:00:00 [facility] TDAP 2013-01-13 Completed University of 00:00:00 [facility] Meningococcal B, 2013-01-13 Completed Universi ty of Recombinant 00:00:00 [facility] HPV 2013-01-13 Completed University of 00:00:00 [facility] TDAP 2013-01-13 Completed University of 00:00:00 [facility] Branch Meningococcal B, 2013-01-13 Completed Universi ty of Recombinant 00:00:00 [facility] HPV 2013-01-13 Completed University of 00:00:00 [facility] TDAP 2013-01-13 Completed University of 00:00:00 [facility] Branch Meningococcal B, 2013-01-13 Completed Universi ty of Recombinant 00:00:00 [facility] HPV 2013-01-13 Completed University of 00:00:00 [facility] TDAP 2013-01-13 Completed University of 00:00:00 [facility] Meningococcal B, 2013-01-13 Completed Universi ty of Recombinant 00:00:00 [facility] HPV 2013-01-13 Completed University of 00:00:00 [facility] TDAP 2013-01-13 Completed University of 00:00:00 [facility] Meningococcal B, 2013-01-13 Completed Universi ty of Recombinant 00:00:00 [facility] HPV 2013-01-13 Completed University of 00:00:00 [facility] TDAP 2013-01-13 Completed University of 00:00:00 [facility] Meningococcal B, 2013-01-13 Completed Universi ty of Recombinant 00:00:00 [facility] HPV 2013-01-13 Completed University of 00:00:00 [facility] TDAP 2013-01-13 Completed University of 00:00:00 [facility] Meningococcal B, 2013-01-13 Completed Universi ty of Recombinant 00:00:00 [facility] HPV 2013-01-13 Completed University of 00:00:00 [facility] TDAP 2013-01-13 Completed University of 00:00:00 [facility] Meningococcal B, 2013-01-13 Completed Universi ty of Recombinant 00:00:00 [facility] Varicella 2009-03-11 Completed University of (varivax)(chicken 00:00:00 [...] 00:00:00 [place] M edical pox) Branch DTAP 2005-09-17 Completed University of 00:00:00 [facility] Hepatitis A Adult 2005-09-17 Completed Univers ity of 00:00:00 [facility] MMR 2005-09-17 Completed University of 00:00:00 [place] [facility] [place] DTAP 2005-09-17 Completed University of 00:00:00 [facility] Hepatitis A Adult 2005-09-17 Completed Univers ity of 00:00:00 [facility] MMR 2005-09-17 Completed University of 00:00:00 [facility] DTAP 2005-09-17 Completed University of 00:00:00 [facility] Hepatitis A Adult 2005-09-17 Completed Univers ity of 00:00:00 [facility] 2005-09-17 Completed University of 00:00:00 [facility] DTAP 2005-09-17 Completed University of 00:00:00 [facility] Hepatitis A Adult 2005-09-17 Completed Univers ity of 00:00:00 [facility] 2005-09-17 Completed University of 00:00:00 [facility] DTAP 2005-09-17 Completed University of 00:00:00 [facility] Hepatitis A Adult 2005-09-17 Completed Univers ity of 00:00:00 [facility] 2005-09-17 Completed University of 00:00:00 [facility] DTAP 2005-09-17 Completed University of 00:00:00 [facility] Hepatitis A Adult 2005-09-17 Completed Univers ity of 00:00:00 [facility] 2005-09-17 Completed University of 00:00:00 [facility] DTAP 2005-09-17 Completed University of 00:00:00 [facility] Hepatitis A Adult 2005-09-17 Completed Univers ity of 00:00:00 [facility] 2005-09-17 Completed University of 00:00:00 [facility] DTAP 2005-09-17 Completed University of 00:00:00 [facility] Hepatitis A Adult 2005-09-17 Completed Univers ity of 00:00:00 [facility] 2005-09-17 Completed University of 00:00:00 [facility] DTAP 2005-09-17 Completed University of 00:00:00 [facility] Hepatitis A Adult 2005-09-17 Completed Univers ity of 00:00:00 [facility] 2005-09-17 Completed University of 00:00:00 [facility] Hepatitis A Adult 2005-03-16 Completed Univers ity of 00:00:00 [facility] Hepatitis A Adult 2005-03-16 Completed Univers ity of 00:00:00 [facility] Hepatitis A Adult 2005-03-16 Completed Univers ity of 00:00:00 [facility] Hepatitis A Adult 2005-03-16 Completed Univers ity of 00:00:00 [facility] Hepatitis A Adult 2005-03-16 Completed Univers ity of 00:00:00 [facility] Hepatitis A Adult 2005-03-16 Completed Univers ity of 00:00:00 [facility] Hepatitis A Adult 2005-03-16 Completed Univers ity of 00:00:00 [facility] Hepatitis A Adult 2005-03-16 Completed Univers ity of 00:00:00 [facility] Hepatitis A Adult 2005-03-16 Completed Univers ity of 00:00:00 [facility] DTAP 2005-03-07 Completed University of 00:00:00 [facility] Hep B, Adol or Pedi 2005-03-07 Completed Unive rsity of Dosage 00:00:00 [facility] MMR 2005-03-07 Completed University of 00:00:00 [facility] Varicella 2005-03-07 Completed University of (varivax)(chicken 00:00:00 [place] [facility] pox) Branch DTAP 2005-03-07 Completed University of 00:00:00 [facility] Hep B, Adol or Pedi 2005-03-07 Completed Unive rsity of Dosage 00:00:00 [facility] MMR 2005-03-07 Completed University of 00:00:00 [facility] Varicella 2005-03-07 Completed University of (varivax)(chicken 00:00:00 [place] M edical pox) Branch DTAP 2005-03-07 Completed University of 00:00:00 [facility] Hep B, Adol or Pedi 2005-03-07 Completed Unive rsity of Dosage 00:00:00 [facility] MMR 2005-03-07 Completed University of 00:00:00 [facility] Varicella 2005-03-07 Completed University of (varivax)(chicken 00:00:00 [place] M edical pox) Branch DTAP 2005-03-07 Completed University of 00:00:00 [facility] Hep B, Adol or Pedi 2005-03-07 Completed Unive rsity of Dosage 00:00:00 [facility] MMR 2005-03-07 Completed University of 00:00:00 [facility] Varicella 2005-03-07 Completed University of (varivax)(chicken 00:00:00 [place] [facility]ical pox) Branch DTAP 2005-03-07 Completed University of 00:00:00 [facility] Hep B, Adol or Pedi 2005-03-07 Completed Unive rsity of Dosage 00:00:00 [facility] MMR 2005-03-07 Completed University of 00:00:00 [facility] Varicella 2005-03-07 Completed University of (varivax)(chicken 00:00:00 [place] [facility]ical pox) Branch DTAP 2005-03-07 Completed University of 00:00:00 [facility] Hep B, Adol or Pedi 2005-03-07 Completed Unive rsity of Dosage 00:00:00 [facility] MMR 2005-03-07 Completed University of 00:00:00 [facility] Varicella 2005-03-07 Completed University of (varivax)(chicken 00:00:00 [place] [facility]ical pox) Branch DTAP 2005-03-07 Completed University of 00:00:00 [facility] Hep B, Adol or Pedi 2005-03-07 Completed Unive rsity of Dosage 00:00:00 [facility] MMR 2005-03-07 Completed University of 00:00:00 [facility] Varicella 2005-03-07 Completed University of (varivax)(chicken 00:00:00 [place] [facility]ical pox) Branch DTAP 2005-03-07 Completed University of 00:00:00 [facility] Hep B, Adol or Pedi 2005-03-07 Completed Unive rsity of Dosage 00:00:00 [facility] MMR 2005-03-07 Completed University of 00:00:00 [facility] Varicella 2005-03-07 Completed University of (varivax)(chicken 00:00:00 [place] [facility]ical pox) Branch DTAP 2005-03-07 Completed University of 00:00:00 [facility] Hep B, Adol or Pedi 2005-03-07 Completed Unive rsity of Dosage 00:00:00 [facility] MMR 2005-03-07 Completed University of 00:00:00 [facility] Varicella 2005-03-07 Completed University of (varivax)(chicken 00:00:00 [place] [facility]ical pox) Branch DTAP 2001 Completed University of 00:00:00 [facility] Branch Hep B, Adol or Pedi 2001 Completed Unive rsity of Dosage 00:00:00 [facility] Branch DTAP 2001 Completed University of 00:00:00 [facility] Branch Hep B, Adol or Pedi 2001 Completed Unive rsity of Dosage 00:00:00 [facility] Branch DTAP 2001 Completed University of 00:00:00 [place] [facility] Hep B, Adol or Pedi 2001 Completed Unive rsity of Dosage 00:00:00 [facility] Branch DTAP 2001 Completed University of 00:00:00 [facility] Hep B, Adol or Pedi 2001 Completed Unive rsity of Dosage 00:00:00 [facility] Branch DTAP 2001 Completed University of 00:00:00 [facility] Branch Hep B, Adol or Pedi 2001 Completed Unive rsity of Dosage 00:00:00 [facility] DTAP 2001 Completed University of 00:00:00 [facility] Branch Hep B, Adol or Pedi 2001 Completed Unive rsity of Dosage 00:00:00 [facility] DTAP 2001 Completed University of 00:00:00 [facility] Branch Hep B, Adol or Pedi 2001 Completed Unive rsity of Dosage 00:00:00 [facility] DTAP 2001 Completed University of 00:00:00 [facility] Hep B, Adol or Pedi 2001 Completed Unive rsity of Dosage 00:00:00 [facility] DTAP 2001 Completed [facility] 00:00:00 [facility] Hep B, Adol or Pedi 2001 Completed [facility] of Dosage 00:00:00 [facility] DTAP 2001 Completed [facility] 00:00:00 [facility] Hep B, Adol or Pedi 2001 Completed [facility]ive rsity of Dosage 00:00:00 [facility] DTAP 2001 Completed [facility] 00:00:00 [facility] Hep B, Adol or Pedi 2001 Completed [facility] rsity of Dosage 00:00:00 [facility] DTAP 2001 Completed [facility] 00:00:00 [facility] Hep B, Adol or Pedi 2001 Completed [facility]ive rsity of Dosage 00:00:00 [facility] DTAP 2001 Completed [facility] 00:00:00 [facility] Hep B, Adol or Pedi 2001 Completed [facility]ive rsity of Dosage 00:00:00 [facility] DTAP 2001 Completed [facility] 00:00:00 [facility] Hep B, Adol or Pedi 2001 Completed [facility]ive rsity of Dosage 00:00:00 [facility] DTAP 2001 Completed [facility] 00:00:00 [facility] Hep B, Adol or Pedi 2001 Completed [facility]ive rsity of Dosage 00:00:00 [facility] DTAP 2001 Completed [facility] 00:00:00 [facility] Hep B, Adol or Pedi 2001 Completed [facility]ive rsity of Dosage 00:00:00 [facility] DTAP 2001 Completed [facility] 00:00:00 [facility] Hep B, Adol or Pedi 2001 Completed [facility]ive rsity of Dosage 00:00:00 [facility] DTAP 2001 Completed [facility] 00:00:00 [facility] Hep B, Adol or Pedi 2001 Completed [facility]ive rsity of Dosage 00:00:00 [facility] Vital Signs Vital Name Observation Time Observation Value Comments Source Systolic blood 2022-07-04 19:05:00 110 mm[Hg] Univer sity of pressure [facility] Diastolic blood 2022-07-04 19:05:00 49 mm[Hg] Unive rsity of pressure [facility] Heart rate 2022-07-04 19:05:00 73 /min [facility] Body temperature 2022-07-04 19:05:00 36.78 Hellen Univ ersity [facility] Respiratory rate 2022-07-04 19:05:00 18 /min Univ ersity [facility] Body height 2022-07-04 19:05:00 165.1 cm [facility] Body weight 2022-07-04 19:05:00 66.906 kg [facility] BMI 2022-07-04 19:05:00 24.55 kg/m2 [facility] Systolic blood 2022-06-23 13:59:00 127 mm[Hg] Univer sity of pressure [facility] Diastolic blood 2022-06-23 13:59:00 72 mm[Hg] Unive rsity [facility] Heart rate 2022-06-23 13:59:00 65 /min [facility] Body temperature 2022-06-23 13:59:00 36.83 Hellen [facility] ers[facility]ly [facility] Respiratory rate 2022-06-23 13:59:00 16 /min [facility] Body height 2022-06-23 13:59:00 152.4 cm [facility] Body weight 2022-06-23 13:59:00 65.998 kg [facility] BMI 2022-06-23 13:59:00 28.42 kg/m2 [facility] Procedures Procedure Date / Time Performed Performing Clinician Sourc e GALV ONLY - VAGINAL 2022-07-04 19:54:00 Margot Ramos [facility] PATHOGENS BY NUCLEIC Medical [email or web address] ndh ACID TESTING ASSIGNMENT OF BENEFITS 2022-06-23 14:44:56 Doctor Unassigned, No [facility] POCT TEST 2022-06-23 00:00:00 Shazia Ellison [facility] Encounters Start End Encounter Admission Attending Care Care Encounter Source Date/Time Date/Time Type Type Clinicians Facility Department ID 2022-09-17 2022-09-17 Outpatient R [facility] [id number] Univers 09:30:00 09:30:00 ity of [facility] 2022-07-20 2022-07-20 Telephone Abhinav [facility] [id number] Univers 00:00:00 00:00:00 Shona Enrique [employer] [id number] ity [facility] [id number] Berto as MATERNAL [id number] Med ical & CHILD [address] [place] [address] 2022-07-05 2022-07-05 Case Moises [facility]OP[facility] [id number] Univers 00:00:00 00:00:00 Management Margot Mathis [employer] [id number] ity of REGIONAL [id number] [place] as MATERNAL [phone] [facility] ical & CHILD [address] [place] [address] 2022-07-04 2022-07-04 Outpatient R [facility] [id number] Univers 12:45:00 13:27:43 MARGOT [facility] 2022-07-04 2022-07-04 Office Provider, [facility] 1 .2.840.114 [id number] [facility] 12:45:00 13:27:43 Visit Margot Ramos [employer] [id number] 0 ity of REGIONAL [id number] [place] as MATERNAL [id number] [facility] [address] [place] [address] 2022-06-27 2022-06-27 [facility] [id number] Univers 00:00:00 00:00:00 Shona Enrique [employer] [id number] ity of REGIONAL [id number] [place]erto as MATERNAL [id number] [facility] & CHILD [address] [place] [address] 2022-06-23 2022-06-23 [facility] 1 .2.840.114 [id number] Univers 09:00:00 09:43:07 Visit Shazia Ellison [employer] [id number] ity of [facility] [id number] [place]erto as MATERNAL [id number] [facility] & CHILD [address] [place] [address] 2022-06-23 2022-06-23 Outpatient Hold[facility] [id number] Univers 09:00:00 09:43:07 SHAZIA [facility] 2022-06-23 2022-06-23 Orders Doctor [facility]FIN 1.2.840.114 [id number] Univers 00:00:00 00:00:00 Only Unassigned, YOSSI [id number] [facility] [id number] B[place] as [id number] [address] 2021-09-07 2021-09-07 Outpatient R AKINSIPE, [facility] [id number] Univers 09:45:00 09:45:00 SHONA ity o f [facility] 2020-12-06 2020-12-06 Outpatient R AKINSIPE, [facility] [id number] Univers 13:30:00 13:30:00 SHONA ity o f [facility] 2020-11-11 2020-11-11 Outpatient R AKINSIPE, [facility] [id number] Univers 13:00:00 13:00:00 SHONA ity o f [facility] 2020-11-01 2020-11-01 Outpatient R [facility] [id number] Univers 10:30[facility] 2020-09-07 2020-09-07 Outpatient R AKINSIPE, [facility] [id number] Univers 09:30:00 09:30:00 SHONA ity o f [facility] 2020-08-29 2020-08-29 Outpatient R AKINSIPE, [facility] [id number] Univers 09:15:00 09:15:00 SHONA ity o f [facility] 2020-08-09 2020-08-09 Outpatient R [facility] [id number] Univers 09:00:00 [facility] 2020-05-17 2020-05-17 Outpatient R [facility] [id number] Univers 09:00:00 09:00:00 ity [facility] 2020-04-27 2020-04-27 Outpatient R AKINSIPE, [facility] [id number] Univers 08:00:00 08:00:00 SHONA ity o f [facility] 2020-02-23 2020-02-23 Outpatient R AKINSIPE, [facility] [id number] Univers 09:00:00 09:00:00 SHONA ity o f [facility] 2020-02-17 2020-02-17 Outpatient R [facility] [id number] Univers 10:00:00 10:00:00 [facility] 2019-11-25 2019-11-25 Outpatient R [facility] [id number] Univers 16:00:00 16:00:00 [facility] Results Test Description Test Time Test Comments Results Result Comments Source POCT TEST 2022-06-23 14:04:00 Test Item Value Reference Range Interpretation Comme nts POCT PREG (test code = 1605) Negative On board controls acceptable with C Line (test code = 3574) Yes POCT PREG LOT # (test code = 3575) POCT PREG TEST DATE (test code = 3576) [id number] 14:04:00 Test Item Value Reference Range Interpretation Comments POCT PREG (test code = 1605) Negative On board controls acceptable with C Yes Line (test code = 3574) POCT PREG LOT # (test code = 3575) POCT PREG TEST DATE (test code = 3576) [facility]
[2022-08-15 17:52] LABS: SARS-COV-2 RT PCR NEGATIVE (NEGATIVE)
--- NOTE | 2022-08-15 21:07 | ER ---
Nurse's Notes [facility] Name: Judith Baker Age: 22 yrs Sex: Female : 2000 Arrival Date: 08/15/2022 Time: 14:40 Bed DIS4 Private MD: Diagnosis: Acute pharyngitis, unspecified;Acute serous otitis media, unspecified ear Presentation: 08/15 16:42 Chief complaint: Patient states: sore throat that began 5 days ago. Coronavirus screen: ss Client denies travel out of the [place] in the last 14 days. Ebola Screen: Patient denies exposure to infectious person. Patient denies travel to an Ebola-affected area in the 21 days before illness onset. Initial Sepsis Screen: Does the patient meet any 2 criteria? No. Patient's initial sepsis screen is negative. Does the patient have a suspected source of infection? No. Patient's initial sepsis screen is negative. Risk Assessment: Do you want to hurt yourself or someone else? Patient reports no desire to harm self or others. Onset of symptoms was August 10, 2022. 16:42 Method Of Arrival: Ambulatory ss 16:42 Acuity: KATEY 4 ss Historical: - Allergies: 16:43 No Known Allergies; ss - Home Meds: 16:43 None [Active]; ss - PMHx: 16:43 None; ss - PSHx: 16:43 None; ss - Immunization history:: Client reports receiving the 2nd dose of the Covid vaccine. - Social history:: Smoking status: Patient denies any tobacco usage or history of. Screenin:35 [facility] ED Fall Risk Assessment (Adult) Score/Fall Risk Level 0 - 2 = Low Risk. Abuse as6 screen: Denies threats or abuse. Denies injuries from another. Nutritional screening: No deficits noted. Tuberculosis screening: No symptoms or risk factors identified. Assessment: 21:35 General: Appears in no apparent distress. Behavior is calm, cooperative. Pain: as6 Complains of pain in neck. Respiratory: Respiratory effort is even, unlabored. EENT: Throat is reddened. Vital Signs: 16:42 BP 125 / 69; Pulse 78; Resp 14; Temp 98.1(O); Pulse Ox 100% on R/A; Pain 6/10; ss 20:45 BP 124 / 61; Pulse 67; Resp 18; Temp 98.3; Pulse Ox 100% on R/A; ls5 21:35 BP 132 / 76; Pulse 84; Resp 18 S; Pulse Ox 100% on R/A; as6 ED Course: 14:40 Patient arrived in ED. am2 14:42 Mary [facility] F[facility]-C [facility] snw 14:42 Cortez Balderrama MD is Attending Physician. snw 16:43 Triage completed. ss 16:43 Arm band placed on right wrist. ss 21:36 Call light in reach. as6 21:36 No provider procedures requiring assistance completed. Patient did not have IV access as6 during this emergency room visit. Administered Medications: 21:29 Drug: Rocephin (cefTRIAXone) 1 grams Route: IM; Site: left ventrogluteal; as6 21:29 Drug: Decadron - Dexamethasone 10 mg Route: IVP; Site: Other; as6 Medication: 21:36 VIS not applicable for this client. as6 Outcome: 21:06 Discharge ordered by . snw 21:35 Discharged to home ambulatory. as6 21:35 Condition: stable 21:35 Discharge instructions given to patient, Instructed on discharge instructions, follow up and referral plans. medication usage, Demonstrated understanding of instructions, follow-up care, medications, Prescriptions given X 4. 21:36 Patient left the ED. as6 Signatures: Mary Yu FNP-C BUNDLER-Csnw Ana Brown RN RN Dary Garner am2 Jero Williamson RN RN as6 Sj Kirk ls5
--- NOTE | 2022-08-15 21:07 | EDPHYS ---
Physician Documentation [facility] Name: Judith Baker Age: 22 yrs Sex: Female : 2000 Arrival Date: 08/15/2022 Time: 14:40 Bed DIS4 Private MD: ED Physician Cortez Balderrama HPI: 08/15 18:34 This 22 yrs old Female presents to ER via Ambulatory with complaints of Sore snw Throat. 18:34 The patient presents with sore throat. The patient describes throat pain as snw intermittent, raw, scratchy. Onset: The symptoms/episode began/occurred gradually, 2 week(s) ago, and became persistent 5 days ago. Severity of symptoms: At their worst the symptoms were moderate. Associated signs and symptoms: The patient has no apparent associated signs or symptoms. The patient has experienced a previous episode. saw [employer], pt was tx for BV (finished abx). Historical: - Allergies: 16:43 No Known Allergies; ss - Home Meds: 16:43 None [Active]; ss - PMHx: 16:43 None; ss - PSHx: 16:43 None; ss - Immunization history:: Client reports receiving the 2nd dose of the Covid vaccine. - Social history:: Smoking status: Patient denies any tobacco usage or history of. ROS: 18:34 Constitutional: Negative for fever, chills, and weight loss, Eyes: Negative for injury, snw pain, redness, and discharge, Neck: Negative for injury, pain, and swelling, Cardiovascular: Negative for chest pain, palpitations, and edema, Respiratory: Negative for shortness of breath, cough, wheezing, and pleuritic chest pain, Abdomen/GI: Negative for abdominal pain, nausea, vomiting, diarrhea, and constipation, Back: Negative for injury and pain, : Negative for injury, bleeding, discharge, and swelling, MS/Extremity: Negative for injury and deformity, Skin: Negative for injury, rash, and discoloration, Neuro: Negative for headache, weakness, numbness, tingling, and seizure, Psych: Negative for depression, anxiety, suicide ideation, homicidal ideation, and hallucinations. 18:34 ENT: Positive for sore throat. Exam: 18:33 Constitutional: This is a well developed, well nourished patient who is awake, alert, snw and in no acute distress. Head/Face: Normocephalic, atraumatic. Eyes: Pupils equal round and reactive to light, extra-ocular motions intact. Lids and lashes normal. Conjunctiva and sclera are non-icteric and not injected. Cornea within normal limits. Periorbital areas with no swelling, redness, or edema. Neck: Trachea midline, no thyromegaly or masses palpated, and no cervical lymphadenopathy. Supple, full range of motion without nuchal rigidity, or vertebral point tenderness. No Meningismus. Chest/axilla: Normal chest wall appearance and motion. Nontender with no deformity. No lesions are appreciated. Cardiovascular: Regular rate and rhythm with a normal S1 and S2. No gallops, murmurs, or rubs. Normal PMI, no JVD. No pulse deficits. Respiratory: Lungs have equal breath sounds bilaterally, clear to auscultation and percussion. No rales, rhonchi or wheezes noted. No increased work of breathing, no retractions or nasal flaring. Abdomen/GI: Soft, non-tender, with normal bowel sounds. No distension or tympany. No guarding or rebound. No evidence of tenderness throughout. Back: No spinal tenderness. No costovertebral tenderness. Full range of motion. Skin: Warm, dry with normal turgor. Normal color with no rashes, no lesions, and no evidence of cellulitis. MS/ Extremity: Pulses equal, no cyanosis. Neurovascular intact. Full, normal range of motion. Neuro: Awake and alert, GCS 15, oriented to person, place, time, and situation. Cranial nerves II-XII grossly intact. Motor strength 5/5 in all extremities. Sensory grossly intact. Cerebellar exam normal. Normal gait. Psych: Awake, alert, with orientation to person, place and time. Behavior, mood, and affect are within normal limits. 18:33 ENT: TM's: erythema, that is moderate, on the left, Nose: is normal, Posterior pharynx: Tonsils: bilaterally enlarged, with erythema, with exudate, swelling, that is moderate, erythema, that is moderate, Voice: no trismus. Vital Signs: 16:42 BP 125 / 69; Pulse 78; Resp 14; Temp 98.1(O); Pulse Ox 100% on R/A; Pain 6/10; ss 20:45 BP 124 / 61; Pulse 67; Resp 18; Temp 98.3; Pulse Ox 100% on R/A; ls5 21:35 BP 132 / 76; Pulse 84; Resp 18 S; Pulse Ox 100% on R/A; as6 MDM: 17:58 Patient medically screened. snw 21:07 Data reviewed: vital signs, nurses notes. Data interpreted: Pulse oximetry: on room air snw is 100 %. Interpretation: normal. Counseling: I had a detailed discussion with the patient and/or guardian regarding: the historical points, exam findings, and any diagnostic results supporting the discharge/admit diagnosis, lab results, the need for outpatient follow up, to return to the emergency department if symptoms worsen or persist or if there are any questions or concerns that arise at home. Special discussion: Based on the history and exam findings, there is no indication for further emergent testing or inpatient evaluation. I discussed with the patient/guardian the need to see the primary care provider for further evaluation of the symptoms. 08/15 14:55 Order name: Strep; Complete Time: 17:31 snw 08/15 14:55 Order name: COVID-19/FLU A+B; Complete Time: 17:57 snw 08/15 17:39 Order name: Throat Culture EDMS 08/15 18:23 Order name: [place] Screen Profile; Complete Time: 21:04 snw Administered Medications: 21:29 Drug: Rocephin (cefTRIAXone) 1 grams Route: IM; Site: left ventrogluteal; as6 21:29 Drug: Decadron - Dexamethasone 10 mg Route: IVP; Site: Other; as6 Disposition Summary: 08/15/22 21:06 Discharge Ordered Location: Home snw Condition: Stable snw Diagnosis - Acute pharyngitis, unspecified snw - Acute serous otitis media, unspecified ear snw Followup: snw - With: Emergency Department - When: As needed - Reason: Worsening of condition Followup: snw - With: Private Physician - When: 2 - 3 days - Reason: Recheck today's complaints, Continuance of care, Re-evaluation by your physician Discharge Instructions: - Discharge Summary Sheet snw - Otitis Media, Adult snw - Pharyngitis snw - Rehydration, Adult snw Forms: - Medication Reconciliation Form snw - Thank You Letter snw - Antibiotic Education snw - Prescription Opioid Use snw Prescriptions: - Augmentin 875-125 mg Oral Tablet - take 1 tablet by ORAL route every 12 hours for 10 days; 20 tablet; Refills: 0, snw Product Selection Permitted - Zyrtec 10 mg Oral Tablet - take 1 tablet by ORAL route once daily As needed; 20 tablet; Refills: 0, snw Product Selection Permitted - Prednisone 20 mg Oral Tablet - take 2 tablets by ORAL route once daily for 5 days; 10 tablet; Refills: 0, snw Product Selection Permitted - Pepcid 20 mg Oral Tablet - take 1 tablet by ORAL route once daily; 20 tablet; Refills: 0, Product snw Selection Permitted Signatures: Dispatcher [employer] EDMS Mary Yu, BEN-C HAND ENGRAVER-Ana Negron RN RN ss Jero Williamson RN RN as6
[2022-08-15] MEDS ORDERED: dexAMETHasone 10 MG/ML VIAL ONE (21:24)
[2022-08-15] MEDS ORDERED: CEFTRIAXONE 1000 MG/VIAL ONE (21:24)
[2022-08-15] MEDS ORDERED: LIDOCAINE 1% MPF 2 ML AMPULE ONE (21:24)
[2022-08-15 22:12] VITALS: O2SAT 100
[2022-08-15 22:18] VITALS: TEMP 98.3
[2022-08-15 22:24] VITALS: BP 132/76
== END 2022-08-15 21:36 | disposition home or self-care (01) ==
LOC: ER 14:21
DX: J02.9 Acute pharyngitis, unspecified (principal); H65.02 Acute serous otitis media, left ear; Z20.822 Contact with and (suspected) exposure to COVID-19
CPT/HCPCS: 87070; 36415; 86308; 87081; 0240U; J1100

== ENCOUNTER 2022-08-29 09:25 | Emergency (ER) | payer OTHER ==
--- OUTSIDE RECORDS SUMMARY | 2022-08-29 09:31 | XMS REPORT | Continuity of Care Document ---
:2000 Author Organization [facility] t Address [address] [place] [address] Care Team Providers Name Role Phone Shona Bryant Primary Care Physician SHONA ARAUZ Attending Clinician Unavailable Shona Bryant Attending Clinician [phone] Margot Ramos CNM Attending Clinician MARGOT RAMOS Attending Clinician Unavailable Provider, [facility] Temp Attending Clinician Unavailable Shazia Ellison PA-C Attending Clinician SHAZIA ELLISON Attending Clinician Unavailable Doctor Unassigned, [place] Attending Clinician Unavailable MELISSA POTTER Attending Clinician Unavailable Payers Payer Name Policy Type Policy Number Effective Date Expiration Date S m[place] [employer] [id number] 2022 00:00:00 Problems Condition Condition Condition Status Onset Resolution Last Treating Co mments Source Name Details Category Date Date Treatment Clinician Date 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 rs squamous squamous 130 ity of cells of cells of 00:00: [...] [place] [address] [place] [address] Allergies, Adverse Reactions, Alerts Allergy Allergy Status Severity Reaction(s) Onset Inactive Treating Comm ents Source Name Type Date Date Clinician NO KNOWN Drug Active Univers ALLERGIE Class ity of S [facility] Social History Social Habit Start Date Stop Date Quantity Comments Source History SDUT University o f Alcohol Std [place] [facility] Branch History [facility] University o f Alcohol Binge [place] [facility] [place] Alcohol intake 2022-07-18 2022-07-18 Current drinker Unive rsity of 00:00:00 00:00:00 of alcohol [facility] (finding) Branch Exposure to 2022-06-24 2022-07-04 Not sure [facility] SARS-CoV-2 00:00:00 13:05:00 [facility] (event) Branch Tobacco use and 2022-06-23 2022-06-23 Smokeless tobacco Un iversity of exposure 00:00:00 00:00:00 non-user [facility] Alcohol Comment 2022-06-23 2022-06-23 Socially Universit y of 00:00:00 00:00:00 [facility] History SDOH 2019-09-02 2019-09-02 1 University o f Alcohol Frequency 00:00:00 00:00:00 [facility] Sex Assigned At 2000 2001 Universit y of 00:00:00 00:00:00 [facility] Smoking Status Start Date Stop Date Source Never smoked tobacco [facility] Medications Ordered Filled Start Stop Current Ordering Indication Dosage Frequency Signature Comments Components Source Medication Medication Date Date Medication? Clinician (SIG) Name Name metroNIDAZO 2021-08- Yes [id number] 500mg Take 1 Univers LE 500 mg 09-20 12-10 tablet by ity of tablet 00:00: 05:59 mouth in [place] 00 :00 the Medical morning Branch and 1 tablet in the evening. Do all this for 7 days. metroNIDAZO 2021-08- Yes [id number] 500mg Take 1 Univers LE 500 mg 1-17 11-25 tablet by ity of tablet 00:00: 05:59 mouth in [place] 00 :00 the Medical morning Branch and 1 tablet in the evening. Do all this for 7 days. medroxyPROG 2021-08 Yes [id number] 150mg Univers ESTERone 1-05 ity of (DEPO-PROVE 14:45: [place] RA) syringe 00 Medical 150 mg Branch medroxyPROG 2021-08 Yes [id number] 150mg 150 mg, Univers ESTERone 1-05 Intramuscu ity o f (DEPO-PROVE 14:45: lar, [place] RA) syringe 00 [id number], Med ical 150 mg First dose Branch on 06/23/22 at 0945, Until Discontinu ed, Routine medroxyPROG 2021-08 Yes [id number] 150mg Univers ESTERone 1-05 ity of (DEPO-PROVE 14:45: [place] RA) syringe 00 Medical 150 mg Branch medroxyPROG 2021-08 Yes [id number] 150mg 150 mg, Univers ESTERone 1-05 Intramuscu ity o f (DEPO-PROVE 14:45: lar, [place] RA) syringe 00 [id number], Med ical 150 mg First dose Branch on 06/23/22 at 0945, Until Discontinu ed, Routine medroxyPROG 2021-08 Yes [id number] 150mg Univers ESTERone 1-05 ity of (DEPO-PROVE 14:45: [place] RA) syringe 00 Medical 150 mg Branch medroxyPROG 2021-08 Yes [id number] 150mg Univers ESTERone 1-05 ity of (DEPO-PROVE 14:45: [place] RA) syringe 00 Medical 150 mg Branch medroxyPROG 2021-08 Yes [id number] 150mg Univers ESTERone 1-05 ity of (DEPO-PROVE 14:45: [place] RA) syringe 00 Medical 150 mg Branch medroxyPROG 2021-08 Yes [id number] 150mg Univers ESTERone 1-05 ity of (DEPO-PROVE 14:45: [place] RA) syringe 00 Medical 150 mg Branch medroxyPROG 2021-08 Yes [id number] 150mg Univers ESTERone 1-05 ity of (DEPO-PROVE 14:45: [place] RA) syringe 00 Medical 150 mg Branch medroxyPROG 2021-08 Yes [id number] 150mg Univers ESTERone 1-05 ity of (DEPO-PROVE 14:45: [place] RA) syringe 00 Medical 150 mg Branch medroxyPROG 2021-08 Yes [id number] 150mg Univers ESTERone 1-05 ity of (DEPO-PROVE 14:45: [place] RA) syringe 00 Medical 150 mg Branch medroxyPROG 2021-08- No [id number] 150mg Univers ESTERone 1-05 11-05 ity of (DEPO-PROVE 14:30: 14:20 [place] RA) 00 :37 Medical injection Branch 150 mg medroxyPROG 2021-08- No [id number] 150mg Univers ESTERone -05 11-05 ity of (DEPO-PROVE 14:30: 14:20 [place] RA) 00 :37 Medical injection Branch 150 mg metroNIDAZO 2019-2021- No [id number] 500mg Take 1 Univers LE 500 mg 09-04 tablet by ity of tablet 00:00: 00:00 mouth 2 [place] 00 :00 (two) Medical times Branch daily. metroNIDAZO 2019-2021- No [id number] 500mg Take 1 Univers LE 500 mg 09-04 tablet by ity of tablet 00:00: 00:00 mouth 2 [place] 00 :00 (two) Medical times Branch daily. Immunizations Ordered Immunization Filled Immunization Date Status Commen ts Source Name Name Influenza Virus 2020-08-09 Completed Universit y of Vaccine Quad .5 mL 00:00:00 [place] [facility] IM 6+ MO Branch Influenza Virus 2020-08-09 Completed Universit y of Vaccine Quad .5 mL 00:00:00 [place] [facility] IM 6+ MO Branch Influenza Virus 2020-08-09 Completed Universit y of Vaccine Quad .5 mL 00:00:00 [place] [facility] IM 6+ MO Branch Influenza Virus 2020-08-09 Completed Universit y of Vaccine Quad .5 mL 00:00:00 [place] [facility] IM 6+ MO Branch Influenza Virus 2020-08-09 Completed Universit y of Vaccine Quad .5 mL 00:00:00 [place] [facility] IM 6+ MO Branch Influenza Virus 2020-08-09 Completed Universit y of Vaccine Quad .5 mL 00:00:00 [place] [facility] IM 6+ MO Branch Influenza Virus 2020-08-09 Completed Universit y of Vaccine Quad .5 mL 00:00:00 [place] [facility] IM 6+ MO Branch Influenza Virus 2020-08-09 Completed Universit y of Vaccine Quad .5 mL 00:00:00 [facility] 6+ MO [place] Influenza Virus 2020-08-09 Completed Universit y of Vaccine Quad .5 mL 00:00:00 [facility] 6+ MO Branch Influenza Virus 2019-09-02 Completed Universit y of Vaccine Quad .5 mL 00:00:00 [facility] 6+ [place] Influenza Virus 2019-09-02 Completed Universit y of Vaccine Quad .5 mL 00:00:00 [facility] 6+ [place] Influenza Virus 2019-09-02 Completed Universit y of Vaccine Quad .5 mL 00:00:00 [facility] 6+ [place] Influenza Virus 2019-09-02 Completed Universit y of Vaccine [place] .5 mL 00:00:00 [place] [address]+ [place] Influenza Virus 2019-09-02 Completed Universit y of Vaccine [place] .5 mL 00:00:[address] [place] Influenza Virus 2019-09-02 Completed Universit y of Vaccine [place] .5 mL 00:00:[address] [place] Influenza Virus 2019-09-02 Completed Universit y of Vaccine [place] .5 mL 00:00:[address] [place] Influenza Virus 2019-09-02 Completed Universit y of Vaccine [place] .5 mL 00:00:[address] Influenza Virus 2019-09-02 Completed Universit y of Vaccine [place] .5 mL 00:00:[address] Meningococcal B, 2017-01-21 Completed Universi ty of Recombinant 00:00:00 [facility] Meningococcal B, 2017-01-21 Completed Universi ty of Recombinant 00:00:00 [facility] Meningococcal B, 2017-01-21 Completed Universi ty of Recombinant 00:00:00 [facility] Meningococcal B, 2017-01-21 Completed Universi ty of Recombinant 00:00:00 [facility] Meningococcal B, 2017-01-21 Completed Universi ty of Recombinant 00:00:00 [facility] Meningococcal B, 2017-01-21 Completed Universi ty of Recombinant 00:00:00 [facility] Meningococcal B, 2017-01-21 Completed Universi ty of Recombinant 00:00:00 [facility] Meningococcal B, 2017-01-21 Completed Universi ty of Recombinant 00:00:00 [facility] Meningococcal B, 2017-01-21 Completed Universi ty of Recombinant 00:00:00 [facility] Influenza Virus 2014-07-27 Completed Universit y of Vaccine 00:00:00 [facility] Influenza Virus 2014-07-27 Completed Universit y of Vaccine 00:00:00 [facility] Influenza Virus 2014-07-27 Completed Universit y of Vaccine 00:00:00 [facility] Influenza Virus 2014-07-27 Completed Universit y of Vaccine 00:00:00 [facility] Influenza Virus 2014-07-27 Completed Universit y of Vaccine 00:00:00 [facility] Influenza Virus 2014-07-27 Completed Universit y of Vaccine 00:00:00 [facility] Influenza Virus 2014-07-27 Completed Universit y of Vaccine 00:00:00 [facility] Influenza Virus 2014-07-27 Completed Universit y of Vaccine 00:00:00 [facility] Influenza Virus 2014-07-27 Completed Universit y of Vaccine 00:00:00 [facility] HPV 2013-07-13 Completed University of 00:00:00 [facility] Influenza Virus 2013-07-13 Completed Universit y of Vaccine 00:00:00 [facility] HPV 2013-07-13 Completed University of 00:00:00 [facility] Influenza Virus 2013-07-13 Completed Universit y of Vaccine 00:00:00 [facility] HPV 2013-07-13 Completed University of 00:00:00 [facility] Influenza Virus 2013-07-13 Completed Universit y of Vaccine 00:00:00 [facility] HPV 2013-07-13 Completed University of 00:00:00 [facility] Influenza Virus 2013-07-13 Completed Universit y of Vaccine 00:00:00 [facility] HPV 2013-07-13 Completed University of 00:00:00 [facility] Influenza Virus 2013-07-13 Completed Universit y of Vaccine 00:00:00 [facility] HPV 2013-07-13 Completed University of 00:00:00 [facility] Influenza Virus 2013-07-13 Completed Universit y of Vaccine 00:00:00 [facility] HPV 2013-07-13 Completed University of 00:00:00 [facility] Influenza Virus 2013-07-13 Completed Universit y of Vaccine 00:00:00 [facility] HPV 2013-07-13 Completed University of 00:00:00 [facility] Influenza Virus 2013-07-13 Completed Universit y of Vaccine 00:00:00 [facility] HPV 2013-07-13 Completed University of 00:00:00 [facility] Influenza Virus 2013-07-13 Completed Universit y of Vaccine 00:00:00 [facility] Branch HPV 2013-03-16 Completed University of 00:00:00 [facility] Branch HPV 2013-03-16 Completed University of 00:00:00 [facility] Branch HPV 2013-03-16 Completed University of 00:00:00 [facility] Branch HPV 2013-03-16 Completed University of 00:00:00 [facility] Branch HPV 2013-03-16 Completed University of 00:00:00 [facility] Branch HPV 2013-03-16 Completed University of 00:00:00 [facility] Branch HPV 2013-03-16 Completed University of 00:00:00 [facility] HPV 2013-03-16 Completed University of 00:00:00 [facility] HPV 2013-03-16 Completed University of 00:00:00 [facility] HPV 2013-01-13 Completed University of 00:00:00 [facility] TDAP 2013-01-13 Completed University of 00:00:00 [facility] Meningococcal B, 2013-01-13 Completed Universi ty of Recombinant 00:00:00 [facility] HPV 2013-01-13 Completed University of 00:00:00 [facility] TDAP 2013-01-13 Completed University of 00:00:00 [facility] Meningococcal B, 2013-01-13 Completed Universi ty of Recombinant 00:00:00 [facility] HPV 2013-01-13 Completed University of 00:00:00 [facility] TDAP 2013-01-13 Completed University of 00:00:00 [facility] Branch Meningococcal B, 2013-01-13 Completed Universi ty of Recombinant 00:00:00 [facility] HPV 2013-01-13 Completed University of 00:00:00 [facility] TDAP 2013-01-13 Completed University of 00:00:00 [facility] Branch Meningococcal B, 2013-01-13 Completed Universi ty of Recombinant 00:00:00 [facility] HPV 2013-01-13 Completed University of 00:00:00 [facility] TDAP 2013-01-13 Completed University of 00:00:00 [facility] Meningococcal B, 2013-01-13 Completed Universi ty of Recombinant 00:00:00 [facility] HPV 2013-01-13 Completed University of 00:00:00 [facility] TDAP 2013-01-13 Completed University of 00:00:00 [facility] Meningococcal B, 2013-01-13 Completed Universi ty of Recombinant 00:00:00 [facility] HPV 2013-01-13 Completed University of 00:00:00 [facility] TDAP 2013-01-13 Completed University of 00:00:00 [facility] Meningococcal B, 2013-01-13 Completed Universi ty of Recombinant 00:00:00 [facility] HPV 2013-01-13 Completed University of 00:00:00 [facility] TDAP 2013-01-13 Completed University of 00:00:00 [facility] Meningococcal B, 2013-01-13 Completed Universi ty of Recombinant 00:00:00 [facility] HPV 2013-01-13 Completed University of 00:00:00 [facility] TDAP 2013-01-13 Completed University of 00:00:00 [facility] Meningococcal B, 2013-01-13 Completed Universi ty of Recombinant 00:00:00 [facility] Varicella 2009-03-11 Completed University [...] Branch DTAP 2005-09-17 Completed University of 00:00:00 [facility] Hepatitis A Adult 2005-09-17 Completed Univers ity of 00:00:00 [facility] MMR 2005-09-17 Completed University of 00:00:00 [place] [facility] DTAP 2005-09-17 Completed University of 00:00:00 [facility] Hepatitis A Adult 2005-09-17 Completed Univers ity of 00:00:00 [facility] MMR 2005-09-17 Completed University of 00:00:00 [facility] DTAP 2005-09-17 Completed University of 00:00:00 [facility] Hepatitis A Adult 2005-09-17 Completed Univers ity of 00:00:00 [facility] 2005-09-17 Completed University of 00:00:00 [facility] DTAP 2005-09-17 Completed University of 00:00:00 [facility] Hepatitis A Adult 2005-09-17 Completed Univers ity of 00:00:00 [facility] 2005-09-17 Completed University of 00:00:00 [facility] DTAP 2005-09-17 Completed University of 00:00:00 [facility] Hepatitis A Adult 2005-09-17 Completed Univers ity of 00:00:00 [facility] 2005-09-17 Completed University of 00:00:00 [facility] DTAP 2005-09-17 Completed University of 00:00:00 [facility] Hepatitis A Adult 2005-09-17 Completed Univers ity of 00:00:00 [facility] 2005-09-17 Completed University of 00:00:00 [facility] DTAP 2005-09-17 Completed University of 00:00:00 [facility] Hepatitis A Adult 2005-09-17 Completed Univers ity of 00:00:00 [facility] 2005-09-17 Completed University of 00:00:00 [facility] DTAP 2005-09-17 Completed University of 00:00:00 [facility] Hepatitis A Adult 2005-09-17 Completed Univers ity of 00:00:00 [facility] 2005-09-17 Completed University of 00:00:00 [facility] DTAP 2005-09-17 Completed University of 00:00:00 [facility] Hepatitis A Adult 2005-09-17 Completed Univers ity of 00:00:00 [facility] 2005-09-17 Completed University of 00:00:00 [facility] Hepatitis A Adult 2005-03-16 Completed Univers ity of 00:00:00 [facility] Hepatitis A Adult 2005-03-16 Completed Univers ity of 00:00:00 [facility] Hepatitis A Adult 2005-03-16 Completed Univers ity of 00:00:00 [facility] Hepatitis A Adult 2005-03-16 Completed Univers ity of 00:00:00 [facility] Hepatitis A Adult 2005-03-16 Completed Univers ity of 00:00:00 [facility] Hepatitis A Adult 2005-03-16 Completed Univers ity of 00:00:00 [facility] Hepatitis A Adult 2005-03-16 Completed Univers ity of 00:00:00 [facility] Hepatitis A Adult 2005-03-16 Completed Univers ity of 00:00:00 [facility] Hepatitis A Adult 2005-03-16 Completed Univers ity of 00:00:00 [facility] DTAP 2005-03-07 Completed University of 00:00:00 [facility] Hep B, Adol or Pedi 2005-03-07 Completed Unive rsity of Dosage 00:00:00 [facility] MMR 2005-03-07 Completed University of 00:00:00 [facility] Varicella 2005-03-07 Completed University of (varivax)(chicken 00:00:00 [place] [facility] pox) Branch DTAP 2005-03-07 Completed University of 00:00:00 [facility] Hep B, Adol or Pedi 2005-03-07 Completed Unive rsity of Dosage 00:00:00 [facility] MMR 2005-03-07 Completed University of 00:00:00 [facility] Varicella 2005-03-07 Completed University of (varivax)(chicken 00:00:00 [place] [facility] pox) Branch DTAP 2005-03-07 Completed University of 00:00:00 [facility] Hep B, Adol or Pedi 2005-03-07 Completed Unive rsity of Dosage 00:00:00 [facility] MMR 2005-03-07 Completed University of 00:00:00 [facility] Varicella 2005-03-07 Completed University of (varivax)(chicken 00:00:00 [place] [facility] pox) Branch DTAP 2005-03-07 Completed University of 00:00:00 [facility] Hep B, Adol or Pedi 2005-03-07 Completed Unive rsity of Dosage 00:00:00 [facility] MMR 2005-03-07 Completed University of 00:00:00 [facility] Varicella 2005-03-07 Completed University of (varivax)(chicken 00:00:00 [place] [facility] pox) Branch DTAP 2005-03-07 Completed University of 00:00:00 [facility] Hep B, Adol or Pedi 2005-03-07 Completed Unive rsity of Dosage 00:00:00 [facility] MMR 2005-03-07 Completed University of 00:00:00 [facility] Varicella 2005-03-07 Completed University of (varivax)(chicken 00:00:00 [place] [facility]ical pox) Branch DTAP 2005-03-07 Completed University of 00:00:00 [facility] Hep B, Adol or Pedi 2005-03-07 Completed Unive rsity of Dosage 00:00:00 [facility] MMR 2005-03-07 Completed University of 00:00:00 [facility] Varicella 2005-03-07 Completed University of (varivax)(chicken 00:00:00 [place] [facility] pox) Branch DTAP 2005-03-07 Completed University of 00:00:00 [facility] Hep B, Adol or Pedi 2005-03-07 Completed Unive rsity of Dosage 00:00:00 [facility] MMR 2005-03-07 Completed University of 00:00:00 [facility] Varicella 2005-03-07 Completed University of (varivax)(chicken 00:00:00 [place] [facility] pox) Branch DTAP 2005-03-07 Completed University of 00:00:00 [facility] Hep B, Adol or Pedi 2005-03-07 Completed Unive rsity of Dosage 00:00:00 [facility] MMR 2005-03-07 Completed University of 00:00:00 [facility] Varicella 2005-03-07 Completed University of (varivax)(chicken 00:00:00 [place] [facility] pox) Branch DTAP 2005-03-07 Completed University of 00:00:00 [facility] Hep B, Adol or Pedi 2005-03-07 Completed Unive rsity of Dosage 00:00:00 [facility] MMR 2005-03-07 Completed University of 00:00:00 [facility] Varicella 2005-03-07 Completed University of (varivax)(chicken 00:00:00 [place] [facility] pox) Branch DTAP 2001 Completed University of 00:00:00 [facility] Branch Hep B, Adol or Pedi 2001 Completed Unive rsity of Dosage 00:00:00 [facility] Branch DTAP 2001 Completed University of 00:00:00 [facility] Branch Hep B, Adol or Pedi 2001 Completed Unive rsity of Dosage 00:00:00 [facility] Branch DTAP 2001 Completed University of 00:00:00 [place] [facility] Hep B, Adol or Pedi 2001 Completed Unive rsity of Dosage 00:00:00 [facility] Branch DTAP 2001 Completed University of 00:00:00 [facility] Branch Hep B, Adol or Pedi 2001 Completed Unive rsity of Dosage 00:00:00 [facility] Branch DTAP 2001 Completed University of 00:00:00 [facility] Branch Hep B, Adol or Pedi 2001 Completed Unive rsity of Dosage 00:00:00 [facility] DTAP 2001 Completed University of 00:00:00 [facility] Branch Hep B, Adol or Pedi 2001 Completed Unive rsity of Dosage 00:00:00 [facility] DTAP 2001 Completed University of 00:00:00 [facility] Branch Hep B, Adol or Pedi 2001 Completed Unive rsity of Dosage 00:00:00 [facility] DTAP 2001 Completed University of 00:00:00 [facility] Branch Hep B, Adol or Pedi 2001 Completed Unive rsity of Dosage 00:00:00 [facility] Branch DTAP 2001 Completed University of 00:00:00 [facility] Branch Hep B, Adol or Pedi 2001 Completed Unive rsity of Dosage 00:00:00 [facility] DTAP 2001 Completed University of 00:00:00 [facility] Branch Hep B, Adol or Pedi 2001 Completed Unive rsity of Dosage 00:00:00 [facility] DTAP 2001 Completed University of 00:00:00 [facility] Branch Hep B, Adol or Pedi 2001 Completed Unive rsity of Dosage 00:00:00 [facility] DTAP 2001 Completed University of 00:00:00 [place] [facility] Hep B, Adol or Pedi 2001 Completed Unive rsity of Dosage 00:00:00 [facility] DTAP 2001 Completed [facility] 00:00:00 [facility] Hep B, Adol or Pedi 2001 Completed [facility] rs[facility] of Dosage 00:00:00 [facility] DTAP 2001 Completed [facility] 00:00:00 [facility] Hep B, Adol or Pedi 2001 Completed [facility]ive rsity of Dosage 00:00:00 [facility] DTAP 2001 Completed [facility] 00:00:00 [facility] Hep B, Adol or Pedi 2001 Completed [facility]ive rsity of Dosage 00:00:00 [facility] DTAP 2001 Completed [facility] 00:00:00 [facility] Hep B, Adol or Pedi 2001 Completed [facility]ive rsity of Dosage 00:00:00 [facility] DTAP 2001 Completed University [facility] 00:00:00 [facility] Hep B, Adol or Pedi 2001 Completed [facility] rsity of Dosage 00:00:00 [facility] DTAP 2001 Completed University [facility] 00:00:00 [facility] Hep B, Adol or Pedi 2001 Completed Unive rsity of Dosage 00:00:00 [facility] Vital Signs Vital Name Observation Time Observation Value Comments Source Systolic blood 2022-07-04 19:05:00 110 mm[Hg] Univer sity of pressure [facility] Diastolic blood 2022-07-04 19:05:00 49 mm[Hg] Unive rsity of pressure [facility] Heart rate 2022-07-04 19:05:00 73 /min [facility] Body temperature 2022-07-04 19:05:00 36.78 [facility]en [facility] Respiratory rate 2022-07-04 19:05:00 18 /min Univ ersity [facility] Body height 2022-07-04 19:05:00 165.1 cm [facility] Body weight 2022-07-04 19:05:00 66.906 kg [facility] BMI 2022-07-04 19:05:00 24.55 kg/m2 [facility] Systolic blood 2022-06-23 13:59:00 127 mm[Hg] Univer sity of pressure [facility] Diastolic blood 2022-06-23 13:59:00 72 mm[Hg] Unive rsity [facility] Heart rate 2022-06-23 13:59:00 65 /min [facility] Body temperature 2022-06-23 13:59:00 36.83 Hellen [facility] 2022-06-23 13:59:00 16 /min [facility] Body height 2022-06-23 13:59:00 152.4 cm [facility] Body weight 2022-06-23 13:59:00 65.998 kg [facility] BMI 2022-06-23 13:59:00 28.42 kg/m2 [facility] Procedures Procedure Date / Time Performed Performing Clinician Sourc e GALV ONLY - VAGINAL 2022-07-04 19:54:00 Margot Ramos [facility] PATHOGENS BY NUCLEIC [facility] [place] ACID TESTING ASSIGNMENT OF BENEFITS 2022-06-23 14:44:56 Doctor Unassigned, No [facility] POCT TEST 2022-06-23 00:00:00 Shazia Ellison [facility] Encounters Start End Encounter Admission Attending Care Care Encounter Source Date/Time Date/Time Type Type Clinicians Facility Department ID 2022-09-17 2022-09-17 Outpatient R [facility] [id number] Univers 09:30:00 09:30:00 ity of [facility] 2022-07-20 2022-07-20 Telephone Abhinav [facility] [id number] Univers 00:00:00 00:00:00 Shona Enrique [employer] [id number] ity [facility] [id number] Berto as MATERNAL [phone] Med ical & CHILD [address] [place] [address] 2022-07-05 2022-07-05 Case Moises SDOPAL [id number] Univers 00:00:00 00:00:00 Management Margot Mathis [employer] [id number] ity of REGIONAL [id number] [place] as MATERNAL [phone] [facility] ical & CHILD [address] [place] [address] 2022-07-04 2022-07-04 [facility] [id number] Univers 12:45:00 13:27:43 MARGOT [facility] 2022-07-04 2022-07-04 Office Provider, [facility] 1 .[id number] [facility] 12:45:00 13:27:43 Visit Margot Ramos [employer] [id number] ity of REGIONAL [id number] [place] as MATERNAL [phone] [facility] & CHILD [address] [place] [address] 2022-06-27 2022-06-27 [facility] [id number] Univers 00:00:00 00:00:00 Shona Enrique [employer] [id number] ity of REGIONAL [id number] [place] as MATERNAL [phone] [facility] & CHILD [address] [place] [address] 2022-06-23 2022-06-23 [facility] 1 .2.840.114 [id number] Univers 09:00:00 09:43:07 Visit Shazia Ellison [employer] [id number] ity of [facility] [id number] [place] as MATERNAL [id number] [facility] & CHILD [address] [place] [address] 2022-06-23 2022-06-23 Outpatient [facility] [id number] Univers 09:00:00 09:43:07 SHAZIA [facility] 2022-06-23 2022-06-23 Orders Doctor RUFFIN 1.2.840.114 [id number] Univers 00:00:00 00:00:00 Only Unassigned, YOSSI [id number] ity [facility] [id number] [place] as [id number] [address] 2021-09-07 2021-09-07 Outpatient R AKINSIPE, [facility] [id number] Univers 09:45:00 09:45:00 SHONA ity o f [facility] 2020-12-06 2020-12-06 Outpatient R AKINSIPE, [facility] [id number] Univers 13:30:00 13:30:00 SHONA ity o f [facility] 2020-11-11 2020-11-11 Outpatient R AKINSIPE, [facility] [id number] Univers 13:00:00 13:00:00 SHONA ity o f [facility] 2020-11-01 2020-11-01 Outpatient R [facility] [id number] Univers 10:30[facility]00 [facility] 2020-09-07 Outpatient R AKINSIPE, [facility] [id number] Univers 09:30:00 09:30:00 SHONA ity o f [facility] 2020-08-29 2020-08-29 Outpatient R AKINSIPE, [facility] [id number] Univers 09:15:00 09:15:00 SHONA ity o f [facility] 2020-08-09 2020-08-09 Outpatient R [facility] [id number] Univers 09:00:00 [facility] 2020-05-17 2020-05-17 Outpatient R [facility] [id number] Univers 09:00:00 09:00:00 ity [facility] 2020-04-27 2020-04-27 Outpatient R AKINSIPE, [facility] [id number] Univers 08:00:00 08:00:00 SHONA ity o f [facility] 2020-02-23 2020-02-23 Outpatient R AKINSIPE, [facility] [id number] Univers 09:00:00 09:00:00 SHONA ity o f [facility] 2020-02-17 2020-02-17 Outpatient R [facility] [id number] Univers 10:00:00 10:00:00 [facility] 2019-11-25 2019-11-25 Outpatient R [facility] [id number] Univers 16:00:00 16:00:00 [facility] Results Test Description Test Time Test Comments Results Result Comments Source POCT TEST 2022-06-23 14:04:00 Test Item Value Reference Range Interpretation Comme nts POCT PREG (test code = 1605) Negative On board controls acceptable with C Line (test code = 3574) Yes POCT PREG LOT # (test code = 3575) POCT PREG TEST DATE (test code = 3576) [id number] 14:04:00 Test Item Value Reference Range Interpretation Comments POCT PREG (test code = 1605) Negative On board controls acceptable with C Yes Line (test code = 3574) POCT PREG LOT # (test code = 3575) POCT PREG TEST DATE (test code = 3576) [facility]
--- NOTE | 2022-08-29 09:37 | ER ---
Nurse's Notes [facility] Name: Judith Baker Age: 22 yrs Sex: Female : 2000 Arrival Date: 08/29/2022 Time: 09:30 Bed IW1 Private MD: Diagnosis: Rash and other nonspecific skin eruption Presentation: 08/29 09:34 Chief complaint: Patient states: "I woke up with a rash all over". Pt describes rash as aa5 itchy. Coronavirus screen: At this time, the client does not indicate any symptoms associated with coronavirus-19. Ebola Screen: Patient denies travel to an Ebola-affected area in the 21 days before illness onset. Initial Sepsis Screen: Does the patient meet any 2 criteria? No. Patient's initial sepsis screen is negative. Does the patient have a suspected source of infection? No. Patient's initial sepsis screen is negative. Risk Assessment: Do you want to hurt yourself or someone else? Patient reports no desire to harm self or others. Onset of symptoms was August 29, 2022. 09:34 Method Of Arrival: Ambulatory aa5 09:34 Acuity: KATEY 5 aa5 Triage Assessment: 09:36 General: Appears comfortable, Behavior is calm, cooperative. Pain: Denies pain. Neuro: aa5 Level of Consciousness is awake, alert, obeys commands, Oriented to person, place, time, situation. Cardiovascular: Patient's skin is warm and dry. Respiratory: Airway is patent Respiratory effort is even, unlabored, Respiratory pattern is regular, symmetrical. GI: No signs and/or symptoms were reported involving the gastrointestinal system. : No signs and/or symptoms were reported regarding the genitourinary system. Derm: Skin is pink, warm \\T\\ dry. Rash noted that is itchy, red, raised, on face, chest, right leg and left leg. Musculoskeletal: Range of motion: intact in all extremities. Historical: - Allergies: 09:35 No Known Allergies; aa5 - PMHx: 09:35 None; aa5 - PSHx: 09:35 None; aa5 - Immunization history:: Adult Immunizations unknown. - Social history:: Smoking status: Patient denies any tobacco usage or history of. Assessment: 09:44 Reassessment: Patient is alert, oriented x 3, equal unlabored respirations, skin aa5 warm/dry/pink. Vital Signs: 09:35 BP 130 / 73; Pulse 94; Resp 18 S; Temp 98.3; Pulse Ox 99% on R/A; Weight 65.77 kg (R); aa5 Height 5 ft. 0 in. (152.40 cm) (R); 09:35 Body Mass Index 28.32 (65.77 kg, 152.40 cm) aa5 ED Course: 09:30 Patient arrived in ED. am2 09:32 Alic[facility] Salinas [facility]C [facility] kb 09:32 Louis Moseley MD is Attending Physician. kb 09:34 Triage completed. aa5 09:34 Arm band placed on. aa5 09:44 No provider procedures requiring assistance completed. Patient did not have IV access aa5 during this emergency room visit. Administered Medications: 09:44 Drug: predniSONE 40 mg Route: PO; aa5 09:44 Follow up: Response: Medication administered at discharge. aa5 09:44 Drug: Pepcid (famotidine) 20 mg Route: PO; aa5 09:44 Follow up: Response: Medication administered at discharge. aa5 Medication: 09:44 VIS not applicable for this client. aa5 Outcome: 09:37 Discharge ordered by MD. kb 09:44 Discharged to home ambulatory, with family. aa5 09:44 Condition: stable 09:44 Discharge instructions given to patient, Instructed on discharge instructions, follow up and referral plans. medication usage, Demonstrated understanding of instructions, follow-up care, medications, Prescriptions given X 2. 09:45 Patient left the ED. aa5 Signatures: Alicia Salinas FNP-C FNP-Ckb Calderon, Audri RN RN aa5 Dary Garner am2 Corrections: (The following items were deleted from the chart) 09:36 09:35 Pulse 94bpm; Resp 18bpm; Spontaneous; Pulse Ox 99% RA; Temp 98.3F; aa5 aa5
--- NOTE | 2022-08-29 09:37 | EDPHYS ---
Physician Documentation [facility] Name: Judith Baker Age: 22 yrs Sex: Female : 2000 Arrival Date: 08/29/2022 Time: 09:30 Bed IW1 Private MD: ED Physician Louis Moseley HPI: 08/29 09:41 This 22 yrs old Female presents to ER via Ambulatory with complaints of Rash. kb 09:41 The patient's rash thought to be caused by an unknown cause. The rash is located on the kb body diffusely. The rash can be described as erythematous. Onset: The symptoms/episode began/occurred this morning. Associated signs and symptoms: Pertinent positives: itching. Severity of symptoms: At their worst the symptoms were mild in the emergency department the symptoms are unchanged. The patient has not experienced similar symptoms in the past. The patient has not recently seen a physician. Historical: - Allergies: 09:35 No Known Allergies; aa5 - PMHx: 09:35 None; aa5 - PSHx: 09:35 None; aa5 - Immunization history:: Adult Immunizations unknown. - Social history:: Smoking status: Patient denies any tobacco usage or history of. ROS: 09:41 Constitutional: Negative for fever, chills, and weight loss. kb 09:41 Skin: Positive for rash. 09:41 All other systems are negative. Exam: 09:41 Constitutional: This is a well developed, well nourished patient who is awake, alert, kb and in no acute distress. Head/Face: Normocephalic, atraumatic. ENT: Moist Mucous membranes Cardiovascular: Regular rate and rhythm with a normal S1 and S2. No gallops, murmurs, or rubs. No pulse deficits. Respiratory: Respirations even and unlabored. No increased work of breathing. Talking in full sentences MS/ Extremity: Pulses equal, no cyanosis. Neurovascular intact. Full, normal range of motion. Neuro: Awake and alert, GCS 15, oriented to person, place, time, and situation. Moves all extremities. Normal gait. Psych: Awake, alert, with orientation to person, place and time. Behavior, mood, and affect are within normal limits. 09:41 Skin: rash a mild rash is noted, rash can be described as erythematous, and is diffusely located. Vital Signs: 09:35 BP 130 / 73; Pulse 94; Resp 18 S; Temp 98.3; Pulse Ox 99% on R/A; Weight 65.77 kg (R); aa5 Height 5 ft. 0 in. (152.40 cm) (R); 09:35 Body Mass Index 28.32 (65.77 kg, 152.40 cm) aa5 MDM: 09:32 Patient medically screened. kb 09:41 Differential diagnosis: allergic reaction, parasite infection. Data reviewed: vital kb signs, nurses notes. I considered the following discharge prescriptions or medication management in the emergency department Elimite considered, but rash appears more allergic in nature. Counseling: I had a detailed discussion with the patient and/or guardian regarding: the historical points, exam findings, and any diagnostic results supporting the discharge/admit diagnosis, the need for outpatient follow up, a family practitioner, to return to the emergency department if symptoms worsen or persist or if there are any questions or concerns that arise at home. Administered Medications: 09:44 Drug: predniSONE 40 mg Route: PO; aa5 09:44 Follow up: Response: Medication administered at discharge. aa5 09:44 Drug: Pepcid (famotidine) 20 mg Route: PO; aa5 09:44 Follow up: Response: Medication administered at discharge. aa5 Disposition Summary: 08/29/22 09:37 Discharge Ordered Location: Home kb Condition: Stable kb Diagnosis - Rash and other nonspecific skin eruption kb Followup: kb - With: Emergency Department - When: As needed - Reason: Worsening of condition Followup: kb - With: Private Physician - When: 2 - 3 days - Reason: Recheck today's complaints, Continuance of care, Re-evaluation by your physician Discharge Instructions: - Discharge Summary Sheet kb - Rash, Adult, [id number] kb Forms: - Medication Reconciliation Form kb - Thank You Letter kb - Antibiotic Education kb - Prescription Opioid Use kb Prescriptions: - Pepcid 20 mg Oral Tablet - take 1 tablet by ORAL route every 12 hours for 5 days; 10 tablet; Refills: 0, kb Product Selection Permitted - Prednisone 20 mg Oral Tablet - take 1 tablet by ORAL route once daily for 5 days; 5 tablet; Refills: 0, kb Product Selection Permitted Signatures: Alicia Salinas, KELLI CONTRERAS-Ckb Whittaker, Macey, RN RN aa5
[2022-08-29] MEDS ORDERED: FAMOTIDINE 20 MG TAB ONE (09:41)
[2022-08-29] MEDS ORDERED: predniSONE 20 MG TAB ONE (09:41)
[2022-08-29 09:49] VITALS: BP 130/73; TEMP 98.3; O2SAT 99
== END 2022-08-29 09:45 | disposition home or self-care (01) ==
LOC: ER 09:25
DX: R21 Rash and other nonspecific skin eruption (principal)
CPT/HCPCS: 99283; J7512